=== PATIENT | female | born 1970 | race Caucasian/White ===

== ENCOUNTER → 2016-07-30 | Outpatient (CLI) | payer BC ==
--- NOTE | 2016-07-31 07:57 | MM ---
Reason for exam: screening (asymptomatic). Last mammogram was performed 3 years and 6 months ago. History: Family history of breast cancer in cousin at age 37 and breast cancer in aunt. Taking hormonal contraceptives for 1 year beginning at age 38. Physical Findings: A clinical breast exam by your physician is recommended on an annual basis and results should be correlated with mammographic findings. MG Screening Mammo w CAD Bilateral CC and MLO view(s) were taken. Prior study comparison: February 10, 2013, bilateral digital screening mammo w/CAD. September 30, 2009, bilateral digital screening mammogram. There are scattered fibroglandular densities. No significant changes when compared with prior studies. ASSESSMENT: Negative, BI-RAD 1 RECOMMENDATION: Routine screening mammogram of both breasts in 1 year.
== END | disposition home or self-care (01) ==
LOC: RADMAMWWP 16:16
PROVIDERS: ATTEND Obstetrics & Gynecology
DX: Z12.31 Encounter for screening mammogram for malignant neoplasm of breast (principal); Z80.3 Family history of malignant neoplasm of breast

== ENCOUNTER 2016-11-25 17:48 | Inpatient (IN) | payer BC ==
[2016-11-25] MEDS ORDERED: RX INFO: IV CONTRAST WAS GIVEN 1 EACH MISC MISCELLANE PRN (18:22)
[2016-11-25] MEDS ORDERED: SODIUM CHLORIDE 0.9% 1,000 ML IV STA (18:22)
[2016-11-25] MEDS ORDERED: ONDANSETRON 4 MG/2 ML VIAL IVP STA (18:40)
[2016-11-25] MEDS ORDERED: MORPHINE SULFATE 2 MG/ML SYRINGE IVP ONE (18:40)
[2016-11-25] MEDS ORDERED: ACETAMINOPHEN TAB 500 MG TAB PO STA (18:41)
--- NOTE | 2016-11-25 18:43 | ED ---
Abdominal Pain HPI - General Chief Complaint: Abdominal Pain Stated Complaint: abdominal pain/Fever Time Seen by Provider: 11/25/16 18:15 Source: patient, RN notes reviewed Mode of arrival: ambulatory Limitations: no limitations - History of Present Illness Initial Comments: 46-year-old female presents emergency Department with chief complaint of left lower quadrant abdominal pain, fever not feeling well. Patient states symptoms started today states that she has not taken Tylenol or Motrin. She states that she was at a graduation alliance party when she developed this pain and states that she felt very cold. Patient went and checked her temp found that she had a temp of 101. Patient states that she is a history of diverticulitis with no history of abscesses, surgery. Denies any nausea vomiting diarrhea constipation. Denies any melena or hematochezia. She denies any dysuria or hematuria. - Related Data Home Medications Medication Instructions Recorded Confirmed Lisinopril [Prinivil] 20 mg PO DAILY 02/08/14 11/25/16 Dextroamphetamine/Amphetamine 10 mg PO BID 11/25/16 11/25/16 [Adderall] Allergies Allergy/AdvReac Type Severity Reaction Status Date / Time No Known Allergies Allergy Verified 11/25/16 18:22 Review of Systems ROS Statement: Those systems with pertinent positive or pertinent negative responses have been documented in the HPI. ROS Other: All systems not noted in ROS Statement are negative. Past Medical History Past Medical History: Diabetes Mellitus, Eye Disorder, Hypertension Additional Past Medical History / Comment(s): cataracts left eye History of Any Multi-Drug Resistant Organisms: None Reported Past Surgical History: Section, Tonsillectomy Past Anesthesia/Blood Transfusion Reactions: No Reported Reaction Past Psychological History: No Psychological Hx Reported Smoking Status: Current some day smoker Past Alcohol Use History: Occasional Past Drug Use History: None Reported - Past Family History Mother Family Medical History: Hypertension, Rheumatoid Arthritis (RA) Additional Family Medical History / Comment(s): from aneurysm in neck General Exam Limitations: no limitations General appearance: alert, in no apparent distress Head exam: Present: atraumatic, normocephalic, normal inspection Respiratory exam: Present: normal lung sounds bilaterally. Absent: respiratory distress, wheezes, rales, rhonchi, stridor Cardiovascular Exam: Present: regular rate, normal rhythm, normal heart sounds. Absent: systolic murmur, diastolic murmur, rubs, gallop, clicks GI/Abdominal exam: Present: soft, tenderness (Moderate left lower quadrant tenderness), normal bowel sounds. Absent: distended, guarding, rebound, rigid Back exam: Absent: CVA tenderness (R), CVA tenderness (L) Skin exam: Present: warm, dry, intact, normal color. Absent: rash Course Vital Signs 11/25/16 11/25/16 17:59 19:21 Temperature 101.8 F H 99.7 F H Pulse Rate 98 95 Respiratory 20 18 Rate Blood Pressure 161/87 161/89 O2 Sat by Pulse 97 98 Oximetry Medical Decision Making - Medical Decision Making 46-year-old female presented for abdominal pain. Patient has diverticulitis with no abscess. Patient is in 2000 white count. Patient did present with fever. Patient was given option go home on oral antibiotics that she does not feel comfortable with this time. Patiently admitted to Dr. iDaz's service. - Lab Data Result diagrams: 11/25/16 19:00 11/25/16 19:00 Lab Results 11/25/16 11/25/16 11/25/16 Range/Units 19:00 19:00 19:00 WBC 17.1 H (3.8-10.6) k/uL RBC 4.29 (3.80-5.40) m/uL Hgb 14.0 (11.4-16.0) gm/dL Hct 38.0 (34.0-46.0) % MCV 88.6 (80.0-100.0) fL MCH 32.5 (25.0-35.0) pg MCHC 36.7 (31.0-37.0) g/dL RDW 12.4 (11.5-15.5) % Plt Count 322 (150-450) k/uL Neutrophils % 79 % Lymphocytes % 12 % Monocytes % 5 % Eosinophils % 2 % Basophils % 0 % Neutrophils # 13.5 H (1.3-7.7) k/uL Lymphocytes # 2.1 (1.0-4.8) k/uL Monocytes # 0.9 (0-1.0) k/uL Eosinophils # 0.3 (0-0.7) k/uL Basophils # 0.1 (0-0.2) k/uL PT (9.0-12.0) sec INR (<1.2) APTT (22.0-30.0) sec Sodium 140 (137-145) mmol/L Potassium 3.6 (3.5-5.1) mmol/L Chloride 104 (98-107) mmol/L Carbon Dioxide 22 (22-30) mmol/L Anion Gap 14 mmol/L BUN 14 (7-17) mg/dL Creatinine 0.60 (0.52-1.04) mg/dL Est GFR (MDRD) Af Amer >60 (>60 ml/min/1.73 sqM) Est GFR (MDRD) Non-Af >60 (>60 ml/min/1.73 sqM) Glucose 200 H (74-99) mg/dL Plasma Lactic Acid Jaxon (0.7-2.0) mmol/L Calcium 9.3 (8.4-10.2) mg/dL Total Bilirubin 0.5 (0.2-1.3) mg/dL AST 19 (14-36) U/L ALT 33 (9-52) U/L Alkaline Phosphatase 69 (38-126) U/L Total Protein 6.9 (6.3-8.2) g/dL Albumin 4.1 (3.5-5.0) g/dL Amylase 30 (30-110) U/L Lipase 117 (23-300) U/L Urine Color Urine Appearance (Clear) Urine pH (5.0-8.0) Ur Specific Remlap (1.001-1.035) Urine Protein (Negative) Urine Glucose (UA) (Negative) Urine Ketones (Negative) Urine Blood (Negative) Urine Nitrite (Negative) Urine Bilirubin (Negative) Urine Urobilinogen (<2.0) mg/dL Ur Leukocyte Esterase (Negative) Urine HCG, Qual Not Detected (Not Detectd) 11/25/16 11/25/16 11/25/16 Range/Units 19:00 19:00 19:18 WBC (3.8-10.6) k/uL RBC (3.80-5.40) m/uL Hgb (11.4-16.0) gm/dL Hct (34.0-46.0) % MCV (80.0-100.0) fL MCH (25.0-35.0) pg MCHC (31.0-37.0) g/dL RDW (11.5-15.5) % Plt Count (150-450) k/uL Neutrophils % % Lymphocytes % % Monocytes % % Eosinophils % % Basophils % % Neutrophils # (1.3-7.7) k/uL Lymphocytes # (1.0-4.8) k/uL Monocytes # (0-1.0) k/uL Eosinophils # (0-0.7) k/uL Basophils # (0-0.2) k/uL PT 10.1 (9.0-12.0) sec INR 1.0 (<1.2) APTT 22.0 (22.0-30.0) sec Sodium (137-145) mmol/L Potassium (3.5-5.1) mmol/L Chloride (98-107) mmol/L Carbon Dioxide (22-30) mmol/L Anion Gap mmol/L BUN (7-17) mg/dL Creatinine (0.52-1.04) mg/dL Est GFR (MDRD) Af Amer (>60 ml/min/1.73 sqM) Est GFR (MDRD) Non-Af (>60 ml/min/1.73 sqM) Glucose (74-99) mg/dL Plasma Lactic Acid Jaxon 1.7 (0.7-2.0) mmol/L Calcium (8.4-10.2) mg/dL Total Bilirubin (0.2-1.3) mg/dL AST (14-36) U/L ALT (9-52) U/L Alkaline Phosphatase (38-126) U/L Total Protein (6.3-8.2) g/dL Albumin (3.5-5.0) g/dL Amylase (30-110) U/L Lipase (23-300) U/L Urine Color Yellow Urine Appearance Clear (Clear) Urine pH 6.0 (5.0-8.0) Ur Specific Remlap 1.015 (1.001-1.035) Urine Protein Negative (Negative) Urine Glucose (UA) 4+ H (Negative) Urine Ketones 1+ H (Negative) Urine Blood Negative (Negative) Urine Nitrite Negative (Negative) Urine Bilirubin Negative (Negative) Urine Urobilinogen <2.0 (<2.0) mg/dL Ur Leukocyte Esterase Negative (Negative) Urine HCG, Qual (Not Detectd) Disposition Clinical Impression: Diverticulitis Disposition: ADMITTED IP TO THIS HOSP Condition: Fair Referrals: Barb Young MD [Primary Care Provider] - 1-2 days
[2016-11-25 19:25] LABS: Basophils # (A) 0.1 k/uL (0-0.2); Basophils % (A) 0 %; CH 31.4; CHCM 35.6; Eosinophils # (A) 0.3 k/uL (0-0.7); Eosinophils % (A) 2 %; HDW 2.56; Luc # (Auto) 0.23; Luc % (Auto) 1; Lymphocytes # (A) 2.1 k/uL (1.0-4.8); Lymphocytes % (A) 12 %; MCH 32.5 pg (25.0-35.0); MCHC 36.7 g/dL (31.0-37.0); MCV 88.6 fL (80.0-100.0); Mean Platelet Volume 7.5; Monocytes # (A) 0.9 k/uL (0-1.0); Monocytes % (A) 5 %; Neutrophils # (A) 13.5 k/uL (1.3-7.7); Neutrophils % (A) 79 %; RBC 4.29 m/uL (3.80-5.40); RDW 12.4 % (11.5-15.5); WBC 17.1 k/uL (3.8-10.6); WBC (Perox) 17.44
[2016-11-25 19:38] LABS: ALT 33 U/L (9-52); AST 19 U/L (14-36); Alkaline Phosphatase 69 U/L (38-126); Amylase 30 U/L (30-110); Anion Gap 14 mmol/L; Blood Urea Nitrogen 14 mg/dL (7-17); Calcium 9.3 mg/dL (8.4-10.2); Carbon Dioxide 22 mmol/L (22-30); Chloride 104 mmol/L (98-107); Glucose 200 mg/dL (74-99); Non-African American GFR(MDRD) >60 (>60 ml/min/1.73 sqM); Potassium 3.6 mmol/L (3.5-5.1); Sodium 140 mmol/L (137-145); Total Bilirubin 0.5 mg/dL (0.2-1.3); Total Protein 6.9 g/dL (6.3-8.2)
[2016-11-25 19:49] LABS: Appearance,Urine Clear (Clear); Bilirubin,Urine Negative (Negative); Glucose,Urine (UA) 4+ (Negative); Ketones,Urine 1+ (Negative); Leukocyte Esterase,Urine Negative (Negative); Nitrite,Urine Negative (Negative); Protein,Urine Negative (Negative); Specific Gravity,Urine 1.015 (1.001-1.035); UA Billing (MACRO vs. MICRO) CHEM; Urobilinogen,Urine <2.0 mg/dL (<2.0)
[2016-11-25 20:06] LABS: Prothrombin Time 10.1 sec (9.0-12.0)
--- NOTE | 2016-11-25 20:38 | CT ---
EXAMINATION TYPE: CT abdomen pelvis w con DATE OF EXAM: 11/25/2016 COMPARISON: 07/19/2014 HISTORY: LLQ pain x1 day. CT DLP: 1483.7 mGycm Automated exposure control for dose reduction was used. TECHNIQUE: Helical acquisition of images was performed from the lung bases through the pelvis. CONTRAST: Performed without Oral Contrast and with IV Contrast, patient injected with 100 mL of Omnipaque 300. FINDINGS: Lung bases are clear. There is no pleural effusion. Liver spleen pancreas gallbladder appear normal. Bile ducts are not dilated. There is no adrenal mass. Kidneys show satisfactory contrast opacificatio n. There is no hydronephrosis. There is fluid fat stranding involving the descending colon and proximal sigmoid colon. There are sig moid diverticula. Bladder distends smoothly. There is no pelvic mass. There is no ascites. Appendix a ppears normal. There is no retroperitoneal adenopathy. The bony structures are intact. IMPRESSION: THERE IS MODERATE INFLAMMATORY CHANGE INVOLVING THE LOWER DESCENDING COLON AND PROXIMAL SIGMOID COLON CONSISTENT WITH DIVERTICULITIS THAT IS NEW COMPARED TO OLD EXAM. NO DRAINABLE ABSCESS SEEN. THERE IS CLEARING OF THE LEFT OVARIAN CYST COMPARED TO OLD EXAM.
[2016-11-25] MEDS ORDERED: NALOXONE 0.4 MG/ML 1 ML VIAL IV PRN (20:55)
[2016-11-25] MEDS ORDERED: ONDANSETRON 4 MG/2 ML VIAL IVP PRN (20:55)
[2016-11-25] MEDS ORDERED: MORPHINE SULFATE 4 MG/ML SYRINGE IV PRN (20:55)
[2016-11-25] MEDS ORDERED: ACETAMINOPHEN TAB 325 MG TAB PO PRN (20:55)
[2016-11-25] MEDS ORDERED: LEVOFLOXACIN 750MG-D5W PMX 750 MG in DEXTROSE/WATER 1 150ML.BAG IVPB STA (20:57)
[2016-11-25] MEDS ORDERED: metroNIDAZOLE-NS PMX 500 MG in SALINE 1 100ML.BAG IVPB STA (21:03)
[2016-11-25] MEDS: SODIUM CHLORIDE 0.9% 1,000 ML IV SCH (21:20)
[2016-11-25 21:45] VITALS: BMI 35.6
[2016-11-25 22:09] LABS: Glucose,Whole Blood 141 mg/dL (75-99)
[2016-11-25 22:14] VITALS: RESP 16
[2016-11-25] MEDS: INSULIN LISPRO (humaLOG) 300 UNIT/3 ML VIAL SQ SCH (22:32)
[2016-11-26] MEDS: HYDROmorphone 1 MG/ML 1 ML SYRINGE IM PRN ×4 (00:29→12:20)
[2016-11-26] MEDS: SODIUM CHLORIDE 0.9% 1,000 ML IV SCH (06:11)
[2016-11-26 06:50] LABS: Glucose,Whole Blood 143 mg/dL (75-99)
[2016-11-26] MEDS: INSULIN LISPRO (humaLOG) 300 UNIT/3 ML VIAL SQ SCH ×2 (07:34→12:30)
[2016-11-26] MEDS: metroNIDAZOLE-NS PMX 500 MG in SALINE 1 100ML.BAG IVPB SCH ×2 (07:39→16:01)
[2016-11-26 08:06] LABS: Hemoglobin A1C 6.5 % (4.2-6.1)
[2016-11-26] MEDS ORDERED: LISINOPRIL 20 MG TAB PO SCH (09:00)
[2016-11-26] MEDS ORDERED: PANTOPRAZOLE 40 MG/10 ML VIAL IV SCH (09:00)
[2016-11-26 11:43] LABS: Glucose,Whole Blood 173 mg/dL (75-99)
[2016-11-26 15:38] VITALS: BP 107/68; PULSE 72; TEMP 98
[2016-11-26] MEDS ORDERED: HYDROcodone/APAP 5-325MG 1 EACH TAB PO PRN (15:56)
[2016-11-26 17:04] LABS: Glucose,Whole Blood 146 mg/dL (75-99)
--- NOTE | 2016-11-26 17:50 | P.HPIM ---
History of Present Illness H&P Date: 11/26/16 Chief Complaint: Left lower abdominal quadrant pain Mrs. Chavez is a 46-year-old female with a past medical history of upper tension, prediabetes coming into the hospital with a chief complaint of left lower abdominal quadrant pain for the past 1 day. Patient was also complaining of fever. The abdominal pain is mostly on the left lower quadrant, radiates 8 out of 10, no radiation, not associated with diarrhea or constipation. Patient denies having any nausea or vomiting. No sick contacts. Patient states he has history of diverticulitis in the past but did not have any surgery done. Patient denies having any dysuria or hematuria. Patient denies having any blood in her stool. She denies having any chest pain, difficulty in breathing, palpitations. Patient had a CAT scan of the abdomen and pelvis showing proximal sigmoid colon diverticulitis. She also did have a white count of 17.2. Patient was given IV Flagyl and Levaquin and given Dilaudid for pain. Patient's symptoms did resolve. Patient did tolerate her dinner this evening and request that she goes home today as she does not have fever, and that her abdominal pain has improved. Review of Systems REVIEW OF SYSTEMS: PSYCH: Normal psychiatric exam NEURO:No c/o weakness of the extremties, No facial droop, No speech abnormalities. VASCULAR: Peripheral nervous system within the normal limits no edema HEMATOLOGIC: No history of easy bleeding and bruising . No recent infections . RESPIRATORY: No cough, No SOB, No chest discomfort. IMMUNE: No infections INTEGUMENT: no rashes OPHTHALMOLOGIC: No blurry vision and no eye discharge : No dysuria or hematuria VIDEO PRODUCTION INTERN: No bleeding PV CARDIAC: No chest pain , shortness of breath , paroxysmal nocturnal dyspnea MUSCULOSKELETAL : No Aches or pains in the joints or muscles. GI: No abdominal pain, Nausea or vomiting. No constipation or diarrhea. Past Medical History Past Medical History: Diabetes Mellitus, Eye Disorder, Hypertension Additional Past Medical History / Comment(s): cataracts left eye History of Any Multi-Drug Resistant Organisms: None Reported Past Surgical History: Section, Tonsillectomy Past Anesthesia/Blood Transfusion Reactions: No Reported Reaction Past Psychological History: No Psychological Hx Reported Smoking Status: Current some day smoker Past Alcohol Use History: Occasional Past Drug Use History: None Reported - Past Family History Mother Family Medical History: Hypertension, Rheumatoid Arthritis (RA) Additional Family Medical History / Comment(s): from aneurysm in neck Medications and Allergies Home Medications Medication Instructions Recorded Confirmed Type Lisinopril [Prinivil] 20 mg PO DAILY 02/08/14 11/25/16 History Dextroamphetamine/Amphetamine 10 mg PO BID 11/25/16 11/25/16 History [Adderall] Allergies Allergy/AdvReac Type Severity Reaction Status Date / Time No Known Allergies Allergy Verified 11/25/16 18:22 Physical Exam Vitals: Vital Signs Temp Pulse Pulse Resp BP BP Pulse Ox 11/26/16 15:00 98.0 F 72 16 107/68 97 11/26/16 07:00 98.6 F 78 16 118/82 98 11/26/16 02:06 98.9 F 76 16 105/68 96 11/25/16 22:12 97.5 F L 88 16 138/85 98 11/25/16 21:15 100.5 F H 91 18 139/83 96 11/25/16 19:21 99.7 F H 95 18 161/89 98 11/25/16 17:59 101.8 F H 98 20 161/87 97 Intake and Output 11/26/16 11/26/16 11/26/16 06:59 14:59 22:59 Intake Total 800 1500 600 Balance 800 1500 600 Intake: Intake, IV Titration 800 800 Amount Levofloxacin 750Mg-D5w 100 Pmx 750 mg In Dextrose/ Water 1 150ml.bag @ 100 mls/hr IVPB Q24H NATHANIEL Rx#: [id number] Sodium Chloride 0.9% 1, 600 000 ml @ 75 mls/hr IV . [id number] NATHANIEL Rx#:[id number] metroNIDAZOLE-NS PMX 500 100 800 mg In Saline 1 100ml.bag @ 100 mls/hr IVPB Q8HR NATHANIEL Rx#:[id number] Oral 700 600 GENERAL EXAM GEN. APPEARANCE: alert, in no apparent distress HEAD EXAM: atraumatic, normocephalic, normal inspection EYE EXAM: normal appearance, PERRL, EOMI. Absent: scleral icterus, conjunctival injection, periorbital swelling ENT EXAM: normal exam, mucous membranes moist NECK EXAM: normal inspection. Absent: tenderness, meningismus, full ROM, lymphadenopathy RESPIRATORY EXAM: normal lung sounds bilaterally. Absent: respiratory distress , wheezes, rales, rhonchi, stridor CARDIOVASCULAR EXAM: regular rate, normal rhythm, normal heart sounds. Absent : systolic murmur, diastolic murmur, rubs, gallop, clicks GI/ABDOMINAL EXAM: soft, normal bowel sounds. + tenderness in the left lower quadrant . EXTREMITIES EXAM: normal inspection, full ROM, normal capillary refill. Absent : tenderness, pedal edema, joint swelling, calf tenderness BACK EXAM: normal inspection NEUROLOGICAL EXAM: alert, oriented X3, CN II-XII intact, motor sensory deficit PSYCHIATRIC EXAM: normal affect, normal mood SKIN EXAM: warm, dry, intact, normal color. Absent: rash Results CBC & Chem 7: 11/25/16 19:00 11/25/16 19:00 Labs: Abnormal Lab Results - Last 24 Hours (Table) 11/25/16 11/25/16 11/25/16 Range/Units 19:00 19:00 19:00 WBC 17.1 H (3.8-10.6) k/uL Neutrophils # 13.5 H (1.3-7.7) k/uL Glucose 200 H (74-99) mg/dL POC Glucose (mg/dL) (75-99) mg/dL Hemoglobin A1c 6.5 H (4.2-6.1) % Urine Glucose (UA) (Negative) Urine Ketones (Negative) 11/25/16 11/25/16 11/26/16 Range/Units 19:18 22:08 06:40 WBC (3.8-10.6) k/uL Neutrophils # (1.3-7.7) k/uL Glucose (74-99) mg/dL POC Glucose (mg/dL) 141 H 143 H (75-99) mg/dL Hemoglobin A1c (4.2-6.1) % Urine Glucose (UA) 4+ H (Negative) Urine Ketones 1+ H (Negative) 11/26/16 11/26/16 Range/Units 11:21 16:44 WBC (3.8-10.6) k/uL Neutrophils # (1.3-7.7) k/uL Glucose (74-99) mg/dL POC Glucose (mg/dL) 173 H 146 H (75-99) mg/dL Hemoglobin A1c (4.2-6.1) % Urine Glucose (UA) (Negative) Urine Ketones (Negative) CT scan - abdomen: report reviewed (Sigmoid colon diverticulitis) Thrombosis Risk Factor Assmnt - Choose All That Apply Any of the Below Risk Factors Present?: No Assessment and Plan Plan: ASSESSMENT Acute diverticulitis Essential hypertension Prediabetes History of diverticulitis ADHD PLAN Patient was started on IV Flagyl and Levaquin and IV fluids after which her symptoms improved significantly. Patient is able to tolerate by mouth, she had a sandwich for dinner and she wants to go home. She is being discharged today on Flagyl and ciprofloxacin for a total of 10 days. She is advised to follow up with her PCP in 2-3 days.
--- NOTE | 2016-11-26 17:51 | P.DS ---
Providers Date of admission: 11/25/16 20:55 Attending physician: Vernon Diaz Primary care physician: Hannah Stoddard [facility] Course: Mrs. Chavez is a 46-year-old female with a past medical history of upper tension, prediabetes coming into the hospital with a chief complaint of left lower abdominal quadrant pain for the past 1 day. Patient was also complaining of fever. The abdominal pain is mostly on the left lower quadrant, radiates 8 out of 10, no radiation, not associated with diarrhea or constipation. Patient denies having any nausea or vomiting. No sick contacts. Patient states he has history of diverticulitis in the past but did not have any surgery done. Patient denies having any dysuria or hematuria. Patient denies having any blood in her stool. She denies having any chest pain, difficulty in breathing, palpitations. Patient had a CAT scan of the abdomen and pelvis showing proximal sigmoid colon diverticulitis. She also did have a white count of 17.2. Patient was given IV Flagyl and Levaquin and given Dilaudid for pain. Patient's symptoms did resolve. Patient did tolerate her dinner this evening and request that she goes home today as she does not have fever, and that her abdominal pain has improved. Patient is able to tolerate by mouth, she had a sandwich for dinner and she wants to go home. She is being discharged today on Flagyl and ciprofloxacin for a total of 10 days. She is advised to follow up with her PCP in 2-3 days. DISCHARGE DIAGNOSES: Acute diverticulitis Essential hypertension Prediabetes History of diverticulitis ADHD Patient Condition at Discharge: Fair Plan - Discharge Summary New Discharge Prescriptions: New Ciprofloxacin HCl [Cipro] 500 mg PO Q12HR #20 tablet HYDROcodone/APAP 5-325MG [Corona 5-325] 1 each PO Q6HR PRN #30 tab PRN Reason: Pain metroNIDAZOLE [Flagyl] 500 mg PO TID #30 tab Continue Lisinopril [Prinivil] 20 mg PO DAILY Dextroamphetamine/Amphetamine [Adderall] 10 mg PO BID Discharge Medication List Lisinopril [Prinivil] 20 mg PO DAILY 02/08/14 [History] Dextroamphetamine/Amphetamine [Adderall] 10 mg PO BID 11/25/16 [History] Ciprofloxacin HCl [Cipro] 500 mg PO Q12HR #20 tablet 11/26/16 [Rx] HYDROcodone/APAP 5-325MG [Corona 5-325] 1 each PO Q6HR PRN #30 tab 11/26/16 [Rx] metroNIDAZOLE [Flagyl] 500 mg PO TID #30 tab 11/26/16 [Rx] Follow up Appointment(s)/Referral(s): Barb Young MD [Primary Care Provider] - 1-2 days (Please call to make follow up appointment. ) Patient Instructions/Handouts: Diverticulitis (DC), Diverticulitis Diet (DC) Discharge Disposition: HOME SELF-CARE
[2016-11-26] MEDS ORDERED: LEVOFLOXACIN 750MG-D5W PMX 750 MG in DEXTROSE/WATER 1 150ML.BAG IVPB SCH (21:00)
[2016-11-27] MEDS ORDERED: ESOMEPRAZOLE 20 MG in SODIUM CHLORIDE 0.9% 50 ML IVPB SCH (09:00)
== END 2016-11-26 18:15 | disposition home or self-care (01) | DRG 392 ==
LOC: EC 17:48 → 3SUR 20:55
PROVIDERS: ADMIT Hospitalist; ATTEND Hospitalist
DX: K57.32 Diverticulitis of large intestine without perforation or abscess without bleeding (principal); I10 Essential (primary) hypertension; F90.9 Attention-deficit hyperactivity disorder, unspecified type; F17.200 Nicotine dependence, unspecified, uncomplicated; E11.9 Type 2 diabetes mellitus without complications; H26.9 Unspecified cataract; Z79.899 Other long term (current) drug therapy
CPT/HCPCS: 36415; 74177; 80053; 81003; 81025; 82150; 83036; 83605; 83690; 85025; 85610; 85730; 87040; 96361; 96374; 96375; 96376; 99285

== ENCOUNTER 2017-10-01 06:15 | Emergency (ER) | payer BC ==
[2017-10-01 06:21] VITALS: RESP 16
[2017-10-01] MEDS ORDERED: SODIUM CHLORIDE 0.9% 1,000 ML IV STA (07:32)
[2017-10-01 07:46] LABS: Basophils # (A) 0.1 k/uL (0-0.2); Basophils % (A) 1 %; Eosinophils # (A) 0.6 k/uL (0-0.7); Eosinophils % (A) 6 %; HCT 43.2 % (34.0-46.0); HGB 14.9 gm/dL (11.4-16.0); Lymphocytes % (A) 32 %; MCH 30.6 pg (25.0-35.0); MCHC 34.5 g/dL (31.0-37.0); MCV 88.7 fL (80.0-100.0); Mean Platelet Volume 7.8; Monocytes # (A) 0.6 k/uL (0-1.0); Monocytes % (A) 6 %; Neutrophils % (A) 54 %; Platelet Count 365 k/uL (150-450); RBC 4.87 m/uL (3.80-5.40); WBC 9.4 k/uL (3.8-10.6)
[2017-10-01 07:56] LABS: Partial Thromboplastin Time 22.9 sec (22.0-30.0)
[2017-10-01 07:57] LABS: ALT 37 U/L (9-52); AST 26 U/L (14-36); Albumin 4.4 g/dL (3.5-5.0); Alkaline Phosphatase 77 U/L (38-126); Anion Gap 14 mmol/L; Blood Urea Nitrogen 7 mg/dL (7-17); Calcium 9.9 mg/dL (8.4-10.2); Carbon Dioxide 26 mmol/L (22-30); Chloride 102 mmol/L (98-107); Glucose 139 mg/dL (74-99); Magnesium 1.4 mg/dL (1.6-2.3); Potassium 3.8 mmol/L (3.5-5.1); Sodium 142 mmol/L (137-145); Total Bilirubin 0.8 mg/dL (0.2-1.3); Total Protein 7.6 g/dL (6.3-8.2)
[2017-10-01 08:08] LABS: Creatine Kinase 79 U/L (30-135)
[2017-10-01 08:21] LABS: Troponin I <0.012 ng/mL (0.000-0.034)
--- NOTE | 2017-10-01 08:24 | XR ---
EXAMINATION TYPE: XR chest 2V DATE OF EXAM: 10/01/2017 COMPARISON: 07/19/2014 HISTORY: 46-year-old female with dysrhythmia TECHNIQUE: PA and lateral views FINDINGS: The cardiomediastinal silhouette, aorta, and pulmonary vasculature are within normal limits. Strandy atelectasis in the lower lungs. Otherwise, lungs and pleural spaces are clear. IMPRESSION: No acute cardiopulmonary process.
--- NOTE | 2017-10-01 10:04 | ED ---
Arrhythmia/Palpitations HPI - General Chief Complaint: Arrhythmia/Palpitations Stated Complaint: rapid heart rate Time Seen by Provider: 10/01/17 07:05 Source: patient Mode of arrival: ambulatory Limitations: no limitations - History of Present Illness Initial Comments: 36 years old female presents with palpitation since yesterday afternoon 3 PM she does have a history of hypertension she does take DIMPLE inhibitor's for the period she said she was quite stressed out because of some family affairs and now she had 5-7 drinks yesterday. She denies any daily alcohol use she does drink once a week she denies any history of thyroid disease. Denies any headaches no neck stiffness no chest pain no shortness of breath no abdominal pain no frequency urgency dysuria no symptoms of TIA or CVA - Related Data Home Medications Medication Instructions Recorded Confirmed Lisinopril [Prinivil] 20 mg PO DAILY 02/08/14 10/01/17 Allergies Allergy/AdvReac Type Severity Reaction Status Date / Time No Known Allergies Allergy Verified 10/01/17 07:58 Review of Systems ROS Statement: Those systems with pertinent positive or pertinent negative responses have been documented in the HPI. ROS Other: All systems not noted in ROS Statement are negative. Past Medical History Past Medical History: Diabetes Mellitus, Eye Disorder, Hypertension Additional Past Medical History / Comment(s): cataracts left eye History of Any Multi-Drug Resistant Organisms: None Reported Past Surgical History: Section, Tonsillectomy Past Anesthesia/Blood Transfusion Reactions: No Reported Reaction Past Psychological History: No Psychological Hx Reported Smoking Status: Current some day smoker Past Alcohol Use History: Occasional Past Drug Use History: None Reported - Past Family History Mother Family Medical History: Hypertension, Rheumatoid Arthritis (RA) Additional Family Medical History / Comment(s): from aneurysm in neck General Exam - General Exam Comments Initial Comments: General: The patient is awake and alert, in no distress, and does not appear acutely ill. Skin: Skin is warm and dry and no rashes or lesions are noted. Eye: Pupils are equal, round and reactive to light, extra-ocular movements are intact; there is normal conjunctiva bilaterally. Ears, nose, mouth and throat: There are moist mucous membranes and no oral lesions. Neck: The neck is supple, there is no tenderness or JVD. Cardiovascular: There is a regular rate and rhythm. No murmur, rub or gallop is appreciated. Respiratory: To auscultation bilateral, no wheezing no rhonchi no distress respiratory mas noticed Gastrointestinal: Soft, non-distended, non-tender abdomen without masses or organomegaly noted. There is no rebound or guarding present. Bowel sounds are unremarkable. Back: There is no tenderness to palpation in the midline. There is no obvious deformity. Musculoskeletal: Normal ROM, no tenderness, There is no pedal edema. There is no calf tenderness or swelling. No cords were appreciated. Neurological: CN II-XII intact, Cranial nerves III through XII are intact. There are no obvious motor or sensory deficits. Coordination appears grossly intact. Speech is normal. Psychiatric: Cooperative, appropriate mood & affect, normal judgment. Limitations: no limitations Course Vital Signs 10/01/17 10/01/17 10/01/17 06:18 07:42 09:10 Temperature 97.9 F Pulse Rate 70 66 71 Respiratory 16 16 16 Rate Blood Pressure 176/98 140/79 137/77 O2 Sat by Pulse 98 98 96 Oximetry Patient is reassessed, CBC, INR, troponin, chest x-ray are unremarkable. TSH is 5.6 is slightly higher than the normal range. All these labs and imaging findings were discussed with the patient, I recommended that she follow with the cardiology associates she agreed with that also advised that she refrains from a cough for the next 3 days she agreed with that as well and return to the ER if symptoms get worse EKG Findings - EKG Comments: EKG Findings:: ALLERGIES normal sinus rhythm ventricular rate is 65 [place] interval is 136 QRS duration is 1 or 2 QT/QTc is 452/470 review cc EKG does not reveal any ST elevation or ST depression Medical Decision Making - Lab Data Result diagrams: 10/01/17 06:30 10/01/17 06:30 Lab Results 10/01/17 10/01/17 10/01/17 Range/Units 06:30 06:30 06:30 WBC 9.4 (3.8-10.6) k/uL RBC 4.87 (3.80-5.40) m/uL Hgb 14.9 (11.4-16.0) gm/dL Hct 43.2 (34.0-46.0) % MCV 88.7 (80.0-100.0) fL MCH 30.6 (25.0-35.0) pg MCHC 34.5 (31.0-37.0) g/dL RDW 13.0 (11.5-15.5) % Plt Count 365 (150-450) k/uL Neutrophils % 54 % Lymphocytes % 32 % Monocytes % 6 % Eosinophils % 6 % Basophils % 1 % Neutrophils # 5.0 (1.3-7.7) k/uL Lymphocytes # 3.0 (1.0-4.8) k/uL Monocytes # 0.6 (0-1.0) k/uL Eosinophils # 0.6 (0-0.7) k/uL Basophils # 0.1 (0-0.2) k/uL PT (9.0-12.0) sec INR (<1.2) APTT (22.0-30.0) sec Sodium 142 (137-145) mmol/L Potassium 3.8 (3.5-5.1) mmol/L Chloride 102 (98-107) mmol/L Carbon Dioxide 26 (22-30) mmol/L Anion Gap 14 mmol/L BUN 7 (7-17) mg/dL Creatinine 0.54 (0.52-1.04) mg/dL Est GFR (CKD-EPI)AfAm >90 (>60 ml/min/1.73 sqM) Est GFR (CKD-EPI)NonAf >90 (>60 ml/min/1.73 sqM) Glucose 139 H (74-99) mg/dL Calcium 9.9 (8.4-10.2) mg/dL Magnesium 1.4 L (1.6-2.3) mg/dL Total Bilirubin 0.8 (0.2-1.3) mg/dL AST 26 (14-36) U/L ALT 37 (9-52) U/L Alkaline Phosphatase 77 (38-126) U/L Total Creatine Kinase 79 (30-135) U/L CK-MB (CK-2) 1.0 (0.0-2.4) ng/mL CK-MB (CK-2) Rel Index 1.3 Troponin I <0.012 (0.000-0.034) ng/mL Total Protein 7.6 (6.3-8.2) g/dL Albumin 4.4 (3.5-5.0) g/dL TSH 5.610 H (0.465-4.680) mIU/L 10/01/17 Range/Units 06:30 WBC (3.8-10.6) k/uL RBC (3.80-5.40) m/uL Hgb (11.4-16.0) gm/dL Hct (34.0-46.0) % MCV (80.0-100.0) fL MCH (25.0-35.0) pg MCHC (31.0-37.0) g/dL RDW (11.5-15.5) % Plt Count (150-450) k/uL Neutrophils % % Lymphocytes % % Monocytes % % Eosinophils % % Basophils % % Neutrophils # (1.3-7.7) k/uL Lymphocytes # (1.0-4.8) k/uL Monocytes # (0-1.0) k/uL Eosinophils # (0-0.7) k/uL Basophils # (0-0.2) k/uL PT 10.0 (9.0-12.0) sec INR 1.0 (<1.2) APTT 22.9 (22.0-30.0) sec Sodium (137-145) mmol/L Potassium (3.5-5.1) mmol/L Chloride (98-107) mmol/L Carbon Dioxide (22-30) mmol/L Anion Gap mmol/L BUN (7-17) mg/dL Creatinine (0.52-1.04) mg/dL Est GFR (CKD-EPI)AfAm (>60 ml/min/1.73 sqM) Est GFR (CKD-EPI)NonAf (>60 ml/min/1.73 sqM) Glucose (74-99) mg/dL Calcium (8.4-10.2) mg/dL Magnesium (1.6-2.3) mg/dL Total Bilirubin (0.2-1.3) mg/dL AST (14-36) U/L ALT (9-52) U/L Alkaline Phosphatase (38-126) U/L Total Creatine Kinase (30-135) U/L CK-MB (CK-2) (0.0-2.4) ng/mL CK-MB (CK-2) Rel Index Troponin I (0.000-0.034) ng/mL Total Protein (6.3-8.2) g/dL Albumin (3.5-5.0) g/dL TSH (0.465-4.680) mIU/L Disposition Clinical Impression: Palpitation Disposition: HOME SELF-CARE Condition: Good Instructions: Palpitations (ED) Is patient prescribed a controlled substance at d/c from ED?: No If prescribed controlled substance>3 days was MAPS reviewed?: No When asked, does pt state using other controlled substances?: No Referrals: Barb Young MD [Primary Care Provider] - 1-2 days Vinod Zarco MD [STAFF PHYSICIAN] - 1-2 days
[2017-10-01 10:16] VITALS: BP 134/78; PULSE 73; TEMP 98
== END 2017-10-01 10:13 | disposition home or self-care (01) ==
LOC: EC 06:15
DX: R00.2 Palpitations (principal); I10 Essential (primary) hypertension; F17.200 Nicotine dependence, unspecified, uncomplicated; Z79.899 Other long term (current) drug therapy
CPT/HCPCS: 36415; 71046; 80053; 82550; 82553; 83735; 84443; 84484; 85025; 85610; 85730; 93005; 96360; 99285

== ENCOUNTER → 2018-06-25 | Outpatient (CLI) | payer SELFPAY ==
[2018-06-25 16:16] LABS: HCT 41.6 % (34.0-46.0); HGB 14.2 gm/dL (11.4-16.0); MCH 30.9 pg (25.0-35.0); MCHC 34.1 g/dL (31.0-37.0); MCV 90.6 fL (80.0-100.0); Mean Platelet Volume 8.1; Platelet Count 311 k/uL (150-450); RBC 4.59 m/uL (3.80-5.40); RDW 12.5 % (11.5-15.5); WBC 8.7 k/uL (3.8-10.6)
[2018-06-25 16:25] LABS: Anion Gap 11 mmol/L; Blood Urea Nitrogen 18 mg/dL (7-17); Carbon Dioxide 25 mmol/L (22-30); Chloride 101 mmol/L (98-107); Glucose 331 mg/dL (74-99); Potassium 4.3 mmol/L (3.5-5.1); Sodium 137 mmol/L (137-145)
== END ==
LOC: LABPAT 15:01
PROVIDERS: ATTEND Internal Medicine Cardiovascular Disease
DX: Z01.812 Encounter for preprocedural laboratory examination (principal); I47.2 Ventricular tachycardia
CPT/HCPCS: 36415; 80051; 82565; 82947; 84520; 85027

== ENCOUNTER 2018-07-04 06:10 | Day surgery (SDC) | payer BC, OTHER ==
[2018-07-02 09:26] VITALS: BMI 35.5
[2018-07-04] MEDS ORDERED: NITROGLYCERIN SL TABS 0.4 MG TAB SUBLINGUAL PRN (06:33)
[2018-07-04] MEDS ORDERED: ALPRAZolam 0.25 MG TAB PO PRN (06:33)
[2018-07-04] MEDS ORDERED: ALPRAZolam 0.5 MG TAB PO PRN (06:33)
[2018-07-04] MEDS ORDERED: SODIUM CHLORIDE 0.9% 1,000 ML in EMPTY BAG 1 BAG IV ONE (06:33)
[2018-07-04 06:51] VITALS: RESP 16; TEMP 98.2
[2018-07-04] MEDS ORDERED: SODIUM CHLORIDE 0.9% 1,000 ML IV ONE (06:54)
[2018-07-04] MEDS ORDERED: ASPIRIN 325 MG TAB PO ONE (07:00)
[2018-07-04] MEDS ORDERED: ATORVASTATIN 80 MG TAB PO ONE (07:00)
[2018-07-04] MEDS ORDERED: INSULIN ASPART (NovoLOG) 100 UNIT/ML VIAL SQ ONE ×2 (07:03→09:47)
[2018-07-04] MEDS ORDERED: LIDOCAINE 1% INJ 10MG/ML (20 ML MDV) ONE (07:21)
[2018-07-04] MEDS ORDERED: fentaNYL (PF) 50 MCG/ML 2 ML AMP ONE (07:23)
[2018-07-04] MEDS ORDERED: fentaNYL (PF) 50 MCG/ML 2 ML AMP IV ONE (07:33)
[2018-07-04] MEDS ORDERED: MIDAZOLAM 2 MG/2 ML VIAL IV ONE (07:33)
[2018-07-04] MEDS ORDERED: LIDOCAINE 1% INJ 10MG/ML (10 ML MDV) SQ ONE (07:35)
[2018-07-04] MEDS ORDERED: IOPAMIDOL-370 125ML BTL INJ ONE (07:54)
[2018-07-04] MEDS ORDERED: RX INFO: IV CONTRAST WAS GIVEN 1 EACH MISC MISCELLANE PRN (07:56)
[2018-07-04] MEDS ORDERED: SODIUM CHLORIDE 0.9% 1,000 ML IV SCH (08:00)
--- NOTE | 2018-07-04 08:24 | CC ---
CARDIAC CATHETERIZATION REPORT INDICATION: Ventricular tachycardia. A 47-year-old lady who follows with my associate, Dr. Fragoso, had right ventricular outflow tract VT and he advised her to undergo cardiac catheterization and asked me to perform the cardiac catheterization for him. Patient was explained the risks, benefits and alternatives. Prior to the catheterization, we found that her blood sugars are elevated and she was given insulin and I asked her to follow up with her primary care physician to be started on antidiabetic medication. PROCEDURE NOTE: After obtaining informed consent, left heart catheterization and coronary angiogram are performed via the right femoral artery using standard Etta catheters. The patient tolerated the procedure well without any obvious immediate complications. A femoral angiogram was performed and Angio-Seal was deployed for hemostasis. Patient received moderate conscious sedation. Total sedation time was 15 minutes. FINDINGS: 1. HEMODYNAMICS: Left ventricular end-diastolic pressure is 12 to 14 mm. There is no significant gradient across the aortic valve. 2. LEFT VENTRICULOGRAM: Left angiogram is not performed. 3. ANGIOGRAPHIC DATA: Left main coronary artery is a short vessel that divides into LAD and circumflex coronary artery. The LAD and its branches, circumflex coronary artery and its branches are free of significant stenosis. Right coronary artery is a large dominant vessel and is free of significant stenosis. CONCLUSIONS: 1. Normal left ventricular end-diastolic pressure. 2. Normal coronary arteries. PLAN: Patient's management is going to be in the form of risk factor modification. I advised her to follow up with Dr. Fragoso in the office for further management and plans. Her blood sugars, she will follow up with her primary care physician in the next few days. The patient knows that she is a diabetic and has been trying to do diet. MMODL / IJN: [id number] /
[2018-07-04] MEDS ORDERED: ACETAMINOPHEN TAB 325 MG TAB PO PRN (10:08)
[2018-07-04 11:52] LABS: Glucose,Whole Blood 322 mg/dL (75-99)
[2018-07-04 11:52] LABS: Glucose,Whole Blood 361 mg/dL (75-99)
[2018-07-04 12:35] VITALS: BP 126/81; PULSE 67
== END 2018-07-04 13:13 | disposition home or self-care (01) ==
LOC: CATHCVL 06:10
PROVIDERS: ATTEND Internal Medicine Cardiovascular Disease
DX: I47.2 Ventricular tachycardia (principal); I10 Essential (primary) hypertension; G47.33 Obstructive sleep apnea (adult) (pediatric); Z72.0 Tobacco use
CPT/HCPCS: 93458; 81025; C1760; C1894; C1769; J2250; J3010; J2001; Q9967

== ENCOUNTER → 2018-08-07 | Outpatient (CLI) | payer OTHER ==
[2018-08-07 16:22] LABS: HCT 38.5 % (34.0-46.0); HGB 12.7 gm/dL (11.4-16.0); MCH 30.2 pg (25.0-35.0); MCV 91.4 fL (80.0-100.0); Platelet Count 275 k/uL (150-450); RBC 4.21 m/uL (3.80-5.40); RDW 13.1 % (11.5-15.5); WBC 9.4 k/uL (3.8-10.6)
[2018-08-07 17:02] LABS: Anion Gap 9 mmol/L; Blood Urea Nitrogen 27 mg/dL (7-17); Carbon Dioxide 27 mmol/L (22-30); Chloride 99 mmol/L (98-107); Glucose 139 mg/dL (74-99); Magnesium 1.6 mg/dL (1.6-2.3); Potassium 4.4 mmol/L (3.5-5.1); Sodium 135 mmol/L (137-145)
== END | disposition home or self-care (01) ==
LOC: LABPAT 16:07
PROVIDERS: ATTEND Internal Medicine Clinical Cardiac Electrophysiology
DX: Z01.812 Encounter for preprocedural laboratory examination (principal); I47.2 Ventricular tachycardia
CPT/HCPCS: 36415; 80051; 82565; 82947; 83735; 84520; 85027

== ENCOUNTER 2018-08-11 11:02 | Day surgery (SDC) | payer OTHER ==
[~2018-08-11 11:02] MED LIST: HYDROmorphone 0.5 MG/0.5 ML SYRINGE IVP PRN; MIDAZOLAM (PF) 2 MG/2 ML VIAL IV PRN
[2018-08-11] MEDS ORDERED: SODIUM CHLORIDE 0.9% 1,000 ML IV ONE (11:25)
[2018-08-11] MEDS ORDERED: PROPOFOL 10 MG/ML 20 ML VIAL IV ONE (11:46)
[2018-08-11] MEDS ORDERED: fentaNYL (PF) 50 MCG/ML 2 ML AMP ONE (11:46)
[2018-08-11] MEDS ORDERED: ISOPROTERENOL 250 MCG/1.25 ML SYR IV ONE (11:46)
[2018-08-11] MEDS ORDERED: MIDAZOLAM 2 MG/2 ML VIAL ONE (11:46)
[2018-08-11 11:50] LABS: Glucose,Whole Blood 135 mg/dL (75-99)
[2018-08-11] MEDS ORDERED: LIDOCAINE 1% INJ 10MG/ML (20 ML MDV) ONE ×3 (12:08→15:03)
[2018-08-11] MEDS ORDERED: HEPARIN SODIUM 1,000 UN/ML (10ML VL) ONE (12:09)
[2018-08-11] MEDS ORDERED: LIDOCAINE 1% INJ 10MG/ML (20 ML MDV) SQ ONE ×2 (12:19→15:03)
[2018-08-11] MEDS: LIDOCAINE 1% INJ 10MG/ML (20 ML MDV) SQ ONE ×2 (12:30→14:33)
[2018-08-11] MEDS ORDERED: HEPARIN SODIUM (1,000 UNIT/ML) 1,000 UNIT in SODIUM CHLORIDE 0.9% 1,000 ML IRRIGATION ONE (13:40)
[2018-08-11] MEDS ORDERED: LACTATED RINGERS 1,000 ML IV ONE (15:11)
[2018-08-11] MEDS ORDERED: ACETAMINOPHEN TAB 325 MG TAB PO PRN (16:16)
[2018-08-11] MEDS ORDERED: ACETAMINOPHEN IV (For NPO) 1,000 MG in EMPTY BAG 1 BAG IVPB ONE (16:16)
[2018-08-11] MEDS: LACTATED RINGERS 1,000 ML IV SCH (16:52)
[2018-08-11 16:53] LABS: Glucose,Whole Blood 100 mg/dL (75-99)
[2018-08-11] MEDS: SODIUM CHLORIDE 0.9% 1,000 ML IV SCH (16:53)
[2018-08-11 17:30] VITALS: BMI 35.6
[2018-08-11] MEDS: metFORMIN 500 MG TAB PO SCH (17:43)
[2018-08-11] MEDS: HYDROcodone/APAP 5-325MG 1 EACH TAB PO PRN (17:59)
[2018-08-11] MEDS ORDERED: NADOLOL 20 MG TAB PO SCH (21:00)
[2018-08-11 23:17] LABS: Glucose,Whole Blood 215 mg/dL (75-99)
[2018-08-12] MEDS: LACTATED RINGERS 1,000 ML IV SCH (01:34)
[2018-08-12] MEDS: HYDROcodone/APAP 5-325MG 1 EACH TAB PO PRN ×2 (02:58→10:39)
[2018-08-12 04:11] VITALS: RESP 18; TEMP 97.8
[2018-08-12] MEDS ORDERED: HYDROmorphone 0.5 MG/0.5 ML SYRINGE IVP STA (05:27)
[2018-08-12] MEDS: SODIUM CHLORIDE 0.9% 1,000 ML IV SCH (06:37)
[2018-08-12 06:43] LABS: Glucose,Whole Blood 147 mg/dL (75-99)
--- NOTE | 2018-08-12 06:54 | CE ---
CARDIAC ELECTROPHYSIOLOGY REPORT This is a 47-year-old female with history of exercise induced PVCs, ventricular couplets, ventricular triplets and nonsustained ventricular tachycardia with normal left ventricular ejection fraction, normal coronary arteries was brought in for diagnostic EP study and possible radiofrequency ablation of the PVC and VT focus. Her PVCs appear to be originating from the right ventricular outflow tract. Patient was brought to the EP lab in a fasting state. Written informed consent was obtained prior to the procedure. The right and left groins were prepped and draped as per protocol. Venous sheaths were placed in the right and left femoral veins via these diagnostic catheters were placed in the right heart. The baseline measurements were as follows: Sinus cycle length 1060 milliseconds, DE interval 129 milliseconds, QRS 106 milliseconds, QT 391 milliseconds. Baseline AH interval 56 milliseconds. Baseline HV interval 33 milliseconds. A detailed EP study was performed both on and off Isuprel, but the patient had only 2 PVCs during the entire diagnostic procedure. There was nonsustained ventricular tachycardia could not be induced, PVCs could not be induced despite high right atrial pacing, RV pacing, coronary sinus pacing, extra stimulation burst stimulation, both on and off high-dose Isuprel. Sinus node recovery times of 600, 500 and 400 milliseconds were 1334, 1494 and 1578 milliseconds. Corresponding corrected sinus node recovery times were mildly prolonged at a paced cycle length of 400 milliseconds. AV node Wenckebach block 330 milliseconds, VA Wenckebach block 450 milliseconds. There was no evidence for delta waves. No evidence of slow pathway conduction. Para Hisian pacing was performed and a angelica response was noted. Atrial extra stimulation was performed from the high right atrium and from the coronary sinus. Burst stimulation was performed from the coronary sinus. No atrial or ventricular arrhythmias were noted. Isuprel was started at high dose and then later even at low dose. Burst stimulation was performed from the right ventricle. Ventricular extra stimulation at 2 drive trains from 2 different sites up to double extra stimuli performed. No ventricular arrhythmias induced. During the entire procedure, the patient did not have nonsustained ventricular tachycardia, PVCs or ventricular couplets other than 2 PVCs. The 2 PVCs had a 99% concordance and appeared to be originating from the RVOT. The PVC QRS was upright in lead I. The left bundle branch block pattern in V1. Upright QRS in lead II and aVF, but negatively oriented QRS in lead III. A 3-D electroanatomic mapping of the RVOT was performed. The patient had a large RVOT. She also had a very rotated heart. This was a difficult procedure that required considerable manipulation of the catheter and careful mapping of the entire RVOT from the pulmonic valve down to the His bundle. The His bundle area was carefully mapped and the His bundle area was tagged. Initially along the posterior/free wall area pace maps appeared to be fairly good and RF ablation was performed here; however, with noncapture at high output. However, as we continue to map in more detail pace maps with a concordance of almost 98% to 99%, a virtually perfect pace map was obtained. However, the perfect pace map was obtained just beyond the His bundle with right bundle signal with HV interval of about 25 milliseconds. The area around this and above the His was carefully pace mapped, but the best pace map was obtained just on the His. Therefore, no ablation was performed at this site. At the end of the procedure, all catheters were removed and patient was transferred back to telemetry. RESULT: Detailed diagnostic EP study revealing mildly abnormal sinus node function, normal AV node function without any delta waves or slow pathway conduction. No inducible arrhythmias. No spontaneous PVCs, VT or nonsustained VT with high-dose Isuprel and ventricular stimulation. Only 2 spontaneous PVCs were noted and these were identical PVCs. Initially they were mapped along the posterior wall/free wall under the pulmonic valve and RF ablation was applied here. However, following that even better pace maps were obtained and in fact pace mapped with a 99% concordance with repeat interrogations, was obtained just distal to the His bundle with HV interval was about 25 milliseconds. Therefore, no further ablations were performed. PLAN: Nadolol 20 mg p.o. daily and if in the future she has any PVCs and nonsustained ventricular tachycardia with exercise, an exercise stress test will also be performed on nadolol, then the morphology of those will be compared with the morphology of these 2 PVCs. If the morphology of those PVCs show that the PVC was negatively oriented in lead III, then no further mapping will be performed since this PVC originates right on the His bundle. However, if her PVCs show an upright QRS in leads II, III, aVF, then she will be brought back for an EP study since this would be a separate and distinct site. Unfortunately, she did not have any nonsustained ventricular tachycardia other than only 2 PVCs during the entire EP study. REJI / KATEN: [id number] /
[2018-08-12] MEDS ORDERED: SODIUM CHLORIDE 0.9% 500 ML 250 ML IV ONE (07:32)
[2018-08-12] MEDS ORDERED: NADOLOL 20 MG TAB PO SCH (09:00)
[2018-08-12] MEDS: metFORMIN 500 MG TAB PO SCH (09:31)
[2018-08-12] MEDS ORDERED: SODIUM CHLORIDE 0.9% 500 ML 500 ML IV ONE (10:33)
--- NOTE | 2018-08-12 11:40 | P.DS ---
Providers Attending physician: Nando Fragoso Primary care physician: [facility] [place] Course: Patient is resting comfortably in bed and she is lying flat in bed using CPAP mask. She has been walking around. No dizziness no chest discomfort no arrhythmias Her blood pressure was low especially after the Dilaudid made given IV fluids. The patient denies chest discomfort or any pruritic chest discomfort or dizziness or presyncope Heart sounds are normal normal S1 normal S2 Breath sounds are clear no rhonchi no crackles Extremities warm no edema No JVD Increased BMI Impression Exercise-induced PVCs ventricular couplets and nonsustained atrial tachycardia Only to PVCs during the entire EP procedure noted. These PVCs were mapped with a bundle/right bundle Medical treatment recommended Suggest Consider nadolol between 10-20 mg by mouth once a blood pressure normalizes and exercise stress test on nadolol Low dose DIMPLE inhibitor since she is diabetic Weight reduction Impression we'll go home later today to Dr. Colby in about 1-2 weeks Patient Condition at Discharge: Stable Plan - Discharge Summary Discharge Rx Participant: Yes New Discharge Prescriptions: Continue Lisinopril 20 mg PO DAILY metFORMIN HCL [Glucophage] 1,000 mg PO BID HYDROcodone/APAP 10-325MG [[place] 10-325] 1 tab PO Q4HR PRN PRN Reason: Pain Discharge Medication List Lisinopril 20 mg PO DAILY 07/04/18 [History] metFORMIN HCL [Glucophage] 1,000 mg PO BID 08/08/18 [History] HYDROcodone/APAP 10-325MG [[place] 10-325] 1 tab PO Q4HR PRN 08/11/18 [History] Activity/Diet/Wound Care/Special Instructions: Post EP study - Ablation instructions 1. Keep access sites dry for 2 days. 2. No heavy lifting or straining for 2 days. 3. Avoid bending the hips repeatedly for 2 days. 4. You may go up and down stairs slowly Call if the following is noted 1. Bleeding, increasing swelling or pain at the access sites. 2. Increasing chest discomfort, especially upon taking a deep breath. 3. Increasing shortness of breath, at rest or with exertion. 4. Undue cough / phlegm 5. Difficulty or pain while swallowing. 6. Pain or change in color in the extremities. 7. Fever, chills, rigors. 8. Increasing headache or neurologic symptoms. 9. Dizziness, fainting, palpitations Start nadolol 20 mg by mouth daily Follow-up with with Dr. Colby/Rachel Soliz within 1 week Discharge Disposition: HOME SELF-CARE
[2018-08-12 11:50] LABS: Glucose,Whole Blood 139 mg/dL (75-99)
[2018-08-12 12:32] VITALS: PULSE 50
--- NOTE | 2018-08-12 13:32 | ECHOF ---
Referral Reason:low bp post eps MEASUREMENTS -------- HEIGHT: 167.6 cm WEIGHT: 86.2 kg BP: 102/70 FINDINGS -------- This was a technically adequate study. Limited Study for assessment of pericardial effusion. There is no pericardial effusion. CONCLUSIONS -------- 1. This was a technically adequate study. 2. Limited Study for assessment of pericardial effusion. 3. There is no pericardial effusion. G[employer]ODITY MANAGER: Alex Garza RDCS
[2018-08-12 14:55] VITALS: BP 106/70
[2018-08-12 16:45] LABS: Glucose,Whole Blood 151 mg/dL (75-99)
== END 2018-08-12 17:03 | disposition home or self-care (01) ==
LOC: CATHEP 11:02 → 1SOBS 15:52 → CATHEP 08-12 17:03
PROVIDERS: ATTEND Internal Medicine Clinical Cardiac Electrophysiology
DX: I49.3 Ventricular premature depolarization (principal); I47.2 Ventricular tachycardia; E11.9 Type 2 diabetes mellitus without complications; I10 Essential (primary) hypertension; G47.33 Obstructive sleep apnea (adult) (pediatric); Z72.0 Tobacco use; Z99.89 Dependence on other enabling machines and devices; Z79.84 Long term (current) use of oral hypoglycemic drugs; Z79.899 Other long term (current) drug therapy
CPT/HCPCS: 93308; 93623; 93654; C1894; C1769 ×2; C1730 ×3; C1893; C1732; J2250; J2001; J3010; J1644; J2704; J1170; 93613

== ENCOUNTER 2020-08-29 21:09 | Emergency (ER) | payer OTHER ==
[2020-08-30 01:09] LABS: Basophils # (A) 0.1 k/uL (0-0.2); Basophils % (A) 1 %; Eosinophils # (A) 0.6 k/uL (0-0.7); Eosinophils % (A) 4 %; HCT 39.2 % (34.0-46.0); HGB 13.8 gm/dL (11.4-16.0); Lymphocytes # (A) 3.2 k/uL (1.0-4.8); Lymphocytes % (A) 20 %; MCH 31.5 pg (25.0-35.0); MCHC 35.1 g/dL (31.0-37.0); MCV 89.8 fL (80.0-100.0); Mean Platelet Volume 7.7; Monocytes % (A) 6 %; Neutrophils % (A) 68 %; Platelet Count 368 k/uL (150-450); RBC 4.36 m/uL (3.80-5.40); RDW 12.8 % (11.5-15.5); WBC 16.1 k/uL (3.8-10.6)
[2020-08-30 01:23] LABS: ALT 15 U/L (4-34); AST 19 U/L (14-36); African American GFR (CKD) >90 (>60 ml/min/1.73 sqM); Albumin 4.4 g/dL (3.5-5.0); Alkaline Phosphatase 91 U/L (38-126); Amylase 52 U/L (30-110); Anion Gap 10 mmol/L; Blood Urea Nitrogen 20 mg/dL (7-17); Calcium 9.9 mg/dL (8.4-10.2); Carbon Dioxide 25 mmol/L (22-30); Chloride 99 mmol/L (98-107); Glucose 224 mg/dL (74-99); Lipase 177 U/L (23-300); Non-African American GFR(CKD) >90 (>60 ml/min/1.73 sqM); Potassium 3.8 mmol/L (3.5-5.1); Sodium 134 mmol/L (137-145); Total Bilirubin 0.5 mg/dL (0.2-1.3); Total Protein 7.5 g/dL (6.3-8.2)
--- NOTE | 2020-08-30 01:28 | ED ---
Abdominal Pain HPI - General Chief Complaint: Abdominal Pain Stated Complaint: Fever,ABD pain Source: patient, RN notes reviewed Mode of arrival: ambulatory Limitations: no limitations - History of Present Illness Initial Comments: 49-year-old female presents emergency Department chief complaint of left lower quadrant abdominal pain. Patient states pain is increased last few days. Patient states that she's had some symptoms for last couple weeks. Patient does have a history of diverticulitis. No urinary complaints. Patient's had some diarrhea, shaking chills afterwards. Patient reports fever.patient's had slight nausea. - Related Data Home Medications Medication Instructions Recorded Confirmed lisinopriL 20 mg PO DAILY 07/04/18 08/11/18 metFORMIN HCL [Glucophage] 1,000 mg PO BID 08/08/18 08/11/18 HYDROcodone/APAP 10-325MG [[place] 1 tab PO Q4HR PRN 08/11/18 08/11/18 10-325] Previous Rx's Medication Instructions Recorded Amoxicillin/Potassium Clav 1 tab PO Q12HR #20 tab 08/30/20 [Augmentin 875-125 Tablet] Ondansetron Odt [Zofran Odt] 4 mg PO Q8HR PRN #10 tab 08/30/20 Allergies Allergy/AdvReac Type Severity Reaction Status Date / Time No Known Allergies Allergy Verified 08/29/20 21:45 Review of Systems ROS Statement: Those systems with pertinent positive or pertinent negative responses have been documented in the HPI. ROS Other: All systems not noted in ROS Statement are negative. Past Medical History Past Medical History: Diabetes Mellitus, Eye Disorder, Hypertension Additional Past Medical History / Comment(s): cataracts left eye History of Any Multi-Drug Resistant Organisms: None Reported Past Surgical History: Section, Tonsillectomy Additional Past Surgical History / Comment(s): CATARACT SURGERY- LEFT EYE WITH IMPLANT Past Anesthesia/Blood Transfusion Reactions: No Reported Reaction Past Psychological History: No Psychological Hx Reported Past Alcohol Use History: Occasional Past Drug Use History: None Reported - Past Family History Father Family Medical History: Hypertension Additional Family Medical History / Comment(s): PUD Mother Family Medical History: Hypertension, Thyroid Disorder Additional Family Medical History / Comment(s): aneurysm General Exam Limitations: no limitations General appearance: alert, in no apparent distress Head exam: Present: atraumatic, normocephalic, normal inspection Respiratory exam: Present: normal lung sounds bilaterally. Absent: respiratory distress, wheezes, rales, rhonchi, stridor Cardiovascular Exam: Present: regular rate, normal rhythm, normal heart sounds. Absent: systolic murmur, diastolic murmur, rubs, gallop, clicks GI/Abdominal exam: Present: soft, tenderness (moderate left upper quadrant), normal bowel sounds. Absent: distended, guarding, rebound, rigid Back exam: Absent: CVA tenderness (R), CVA tenderness (L) Neurological exam: Present: alert, oriented X3 Skin exam: Present: warm, dry, intact, normal color. Absent: rash Course Vital Signs 08/29/20 08/30/20 21:42 01:25 Temperature 97.9 F 97.9 F Pulse Rate 83 85 Respiratory 16 18 Rate Blood Pressure 147/83 144/95 O2 Sat by Pulse 97 97 Oximetry Medical Decision Making - Medical Decision Making 41-year-old female presents emergency from chief complaint of left lower quadrant abdominal pain CT shows evidence of early diverticulitis. Patient does have some bacteria in her urinalysis. Patient was given Rocephin. Patient will be discharged with antibiotics, liquid diet, pain medication - Lab Data Result diagrams: 08/30/20 00:50 08/30/20 00:50 Lab Results 08/30/20 08/30/20 08/30/20 Range/Units 00:50 00:50 00:50 WBC 16.1 H (3.8-10.6) k/uL RBC 4.36 (3.80-5.40) m/uL Hgb 13.8 (11.4-16.0) gm/dL Hct 39.2 (34.0-46.0) % MCV 89.8 (80.0-100.0) fL MCH 31.5 (25.0-35.0) pg MCHC 35.1 (31.0-37.0) g/dL RDW 12.8 (11.5-15.5) % Plt Count 368 (150-450) k/uL MPV 7.7 Neutrophils % 68 % Lymphocytes % 20 % Monocytes % 6 % Eosinophils % 4 % Basophils % 1 % Neutrophils # 11.0 H (1.3-7.7) k/uL Lymphocytes # 3.2 (1.0-4.8) k/uL Monocytes # 1.0 (0-1.0) k/uL Eosinophils # 0.6 (0-0.7) k/uL Basophils # 0.1 (0-0.2) k/uL Sodium 134 L (137-145) mmol/L Potassium 3.8 (3.5-5.1) mmol/L Chloride 99 (98-107) mmol/L Carbon Dioxide 25 (22-30) mmol/L Anion Gap 10 mmol/L BUN 20 H (7-17) mg/dL Creatinine 0.69 (0.52-1.04) mg/dL Est GFR (CKD-EPI)AfAm >90 (>60 ml/min/1.73 sqM) Est GFR (CKD-EPI)NonAf >90 (>60 ml/min/1.73 sqM) Glucose 224 H (74-99) mg/dL Plasma Lactic Acid Jaxon (0.7-2.0) mmol/L Calcium 9.9 (8.4-10.2) mg/dL Total Bilirubin 0.5 (0.2-1.3) mg/dL AST 19 (14-36) U/L ALT 15 (4-34) U/L Alkaline Phosphatase 91 (38-126) U/L Total Protein 7.5 (6.3-8.2) g/dL Albumin 4.4 (3.5-5.0) g/dL Amylase 52 (30-110) U/L Lipase 177 (23-300) U/L Urine Color Light Yellow Urine Appearance Clear (Clear) Urine pH 5.5 (5.0-8.0) Ur Specific [place] 1.013 (1.001-1.035) Urine Protein Negative (Negative) Urine Glucose (UA) 1+ H (Negative) Urine Ketones Negative (Negative) Urine Blood Negative (Negative) Urine Nitrite Negative (Negative) Urine Bilirubin Negative (Negative) Urine Urobilinogen <2.0 (<2.0) mg/dL Ur Leukocyte Esterase Large H (Negative) Urine RBC 1 (0-5) /hpf Urine WBC 15 H (0-5) /hpf Ur Squamous Epith Cells 1 (0-4) /hpf Urine Bacteria Rare H (None) /hpf Hyaline Casts 1 (0-2) /lpf 08/30/20 Range/Units 00:50 WBC (3.8-10.6) k/uL RBC (3.80-5.40) m/uL Hgb (11.4-16.0) gm/dL Hct (34.0-46.0) % MCV (80.0-100.0) fL MCH (25.0-35.0) pg MCHC (31.0-37.0) g/dL RDW (11.5-15.5) % Plt Count (150-450) k/uL MPV Neutrophils % % Lymphocytes % % Monocytes % % Eosinophils % % Basophils % % Neutrophils # (1.3-7.7) k/uL Lymphocytes # (1.0-4.8) k/uL Monocytes # (0-1.0) k/uL Eosinophils # (0-0.7) k/uL Basophils # (0-0.2) k/uL Sodium (137-145) mmol/L Potassium (3.5-5.1) mmol/L Chloride (98-107) mmol/L Carbon Dioxide (22-30) mmol/L Anion Gap mmol/L BUN (7-17) mg/dL Creatinine (0.52-1.04) mg/dL Est GFR (CKD-EPI)AfAm (>60 ml/min/1.73 sqM) Est GFR (CKD-EPI)NonAf (>60 ml/min/1.73 sqM) Glucose (74-99) mg/dL Plasma Lactic Acid Jaxon 1.7 (0.7-2.0) mmol/L Calcium (8.4-10.2) mg/dL Total Bilirubin (0.2-1.3) mg/dL AST (14-36) U/L ALT (4-34) U/L Alkaline Phosphatase (38-126) U/L Total Protein (6.3-8.2) g/dL Albumin (3.5-5.0) g/dL Amylase (30-110) U/L Lipase (23-300) U/L Urine Color Urine Appearance (Clear) Urine pH (5.0-8.0) Ur Specific [place] (1.001-1.035) Urine Protein (Negative) Urine Glucose (UA) (Negative) Urine Ketones (Negative) Urine Blood (Negative) Urine Nitrite (Negative) Urine Bilirubin (Negative) Urine Urobilinogen (<2.0) mg/dL Ur Leukocyte Esterase (Negative) Urine RBC (0-5) /hpf Urine WBC (0-5) /hpf Ur Squamous Epith Cells (0-4) /hpf Urine Bacteria (None) /hpf Hyaline Casts (0-2) /lpf Disposition Clinical Impression: Diverticulitis, UTI (urinary tract infection) Disposition: HOME SELF-CARE Condition: Stable Instructions (If sedation given, give patient instructions): Diverticulitis (ED) Additional Instructions: Please return to the Emergency Department if symptoms worsen or any other concerns. Prescriptions: Amoxicillin/Potassium Clav [Augmentin 875-125 Tablet] 1 tab PO Q12HR #20 tab Ondansetron Odt [Zofran Odt] 4 mg PO Q8HR PRN #10 tab PRN Reason: Nausea Is patient prescribed a controlled substance at d/c from ED?: No Referrals: Barb Young MD [Primary Care Provider] - 1-2 days Time of Disposition: 02:41
[2020-08-30 01:44] LABS: Appearance,Urine Clear (Clear); Bacteria,Urine Rare /hpf; Bilirubin,Urine Negative (Negative); Blood,Urine Negative (Negative); Color,Urine Light Yellow; Glucose,Urine (UA) 1+ (Negative); Hyaline Casts,Urine 1 /lpf (0-2); Ketones,Urine Negative (Negative); Leukocyte Esterase,Urine Large (Negative); Nitrite,Urine Negative (Negative); PH, Urine 5.5 (5.0-8.0); Protein,Urine Negative (Negative); RBC,Urine 1 /hpf (0-5); Specific Gravity,Urine 1.013 (1.001-1.035); Squamous Epithelial Cell,Urine 1 /hpf (0-4); Urobilinogen,Urine <2.0 mg/dL (<2.0); WBC,Urine 15 /hpf (0-5)
[2020-08-30] MEDS ORDERED: KETOROLAC 15 MG/ML 1 ML VIAL IVP STA (01:44)
--- NOTE | 2020-08-30 02:30 | CT ---
EXAM: CT Abdomen and Pelvis With Intravenous Contrast CLINICAL HISTORY: LLQ pain TECHNIQUE: Axial computed tomography images of the abdomen and pelvis with intravenous contrast. CTDI is 28.97 mGy and DLP is 1574.4 mGy-cm. This CT exam was performed using one or more of the following dose reduction techniques: automated exposure control, adjustment of the mA and/or kV according to patient size, and/or use of iterative reconstruction technique. Coronal and sagittal reformatted images were created and reviewed. COMPARISON: 11/25/16 FINDINGS: Artifacts: Motion artifact slightly decreases the sensitivity of this exam. Lung bases: Unremarkable. No mass. No consolidation. ABDOMEN: Liver: Moderate hepatomegaly. No mass. Gallbladder and bile ducts: Unremarkable. No calcified stones. No ductal dilation. Pancreas: Unremarkable. No mass. No ductal dilation. Spleen: Unremarkable. No splenomegaly. Adrenals: Unremarkable. No mass. Kidneys and ureters: Unremarkable. No solid mass. No hydronephrosis. Stomach and bowel: Mild circumferential wall thickening of short segment of proximal sigmoid colon in anterior left pelvis with associated diverticula, surrounded by trace of mesenteric inflammation on series 201 images 64-71, suggest early diverticulitis. No obstruction. PELVIS: Appendix: Normal appendix Bladder: Unremarkable. No mass. Reproductive: Unremarkable as visualized. ABDOMEN and PELVIS: Intraperitoneal space: Unremarkable. No free air. No significant fluid collection. Bones/joints: No acute findings. Soft tissues: Unremarkable. Vasculature: Unremarkable. No abdominal aortic aneurysm. Lymph nodes: Unremarkable. No enlarged lymph nodes. IMPRESSION: Early sigmoid diverticulitis. No perforation or abscess.
[2020-08-30] MEDS ORDERED: cefTRIAXone IN SWFI 1,000 MG/10 ML SYRINGE IVP STA (02:40)
[2020-08-30] MEDS ORDERED: ACET/COD 300 MG/30 MG STARTER PACK 6 TAB BTL PO STA (02:41)
[2020-08-30 03:50] VITALS: BP 135/73; PULSE 89; RESP 16; TEMP 98.8
== END 2020-08-30 03:48 | disposition home or self-care (01) ==
LOC: EC 21:09
DX: K57.32 Diverticulitis of large intestine without perforation or abscess without bleeding (principal); N39.0 Urinary tract infection, site not specified; I10 Essential (primary) hypertension; E11.9 Type 2 diabetes mellitus without complications; Z79.84 Long term (current) use of oral hypoglycemic drugs
CPT/HCPCS: 99284; 96374; 96375; 36415; 80053; 82150; 83605; 83690; 85025; 81001; 87086; 74177; J0696; J1885

== ENCOUNTER 2021-03-06 17:53 | Emergency (ER) | payer OTHER ==
[2021-03-06 19:14] VITALS: TEMP 98.4
--- NOTE | 2021-03-06 19:50 | XR ---
EXAMINATION TYPE: XR shoulder complete LT DATE OF EXAM: 03/06/2021 COMPARISON: NONE HISTORY: Shoulder pain TECHNIQUE: 3 views FINDINGS: I see no fracture nor dislocation. Joint spaces are normal. IMPRESSION: Negative left shoulder exam.
[2021-03-06 20:06] VITALS: BP 135/85; PULSE 87; RESP 20
[2021-03-06] MEDS ORDERED: KETOROLAC 15 MG/ML 1 ML VIAL IVP STA (20:10)
[2021-03-06] MEDS ORDERED: ORPHENADRINE 30 MG/ML 2 ML VIAL IM STA (20:10)
--- NOTE | 2021-03-06 20:13 | ED ---
General Adult HPI - General Chief complaint: Extremity Injury, Upper Stated complaint: shoulder pain Time Seen by Provider: 03/06/21 20:03 Source: patient, RN notes reviewed, old records reviewed Mode of arrival: ambulatory Limitations: no limitations - History of Present Illness Initial comments: 50-year-old well-appearing female presents to the emergency room with complaints of left shoulder pain for one week. She states that she attributes it to driving her car without power steering and having to push/pull the steering wheel. She states that she has been using kinesiology tape and Motrin with no relief. She states she has point tenderness pain to the proximal humerus. She states she works for [employer] as directed to come to the emergency room. Her position of comfort is adduction. -: week(s) (1) Location: left, upper extremity (Shoulder) Radiation: distal Severity scale (1-10): 10 Quality: sharp, constant Consistency: constant Improves with: none Worsens with: movement Associated Symptoms: denies other symptoms Treatments Prior to Arrival: NSAID, other (Kinesiology tape) - Related Data Home Medications Medication Instructions Recorded Confirmed lisinopriL 20 mg PO DAILY 07/04/18 08/11/18 metFORMIN HCL [Glucophage] 1,000 mg PO BID 08/08/18 08/11/18 HYDROcodone/APAP 10-325MG [[place] 1 tab PO Q4HR PRN 08/11/18 08/11/18 10-325] Previous Rx's Medication Instructions Recorded Amoxicillin/Potassium Clav 1 tab PO Q12HR #20 tab 08/30/20 [Augmentin 875-125 Tablet] Ondansetron Odt [Zofran Odt] 4 mg PO Q8HR PRN #10 tab 08/30/20 Allergies Allergy/AdvReac Type Severity Reaction Status Date / Time No Known Allergies Allergy Verified 03/06/21 19:11 Review of Systems ROS Statement: Those systems with pertinent positive or pertinent negative responses have been documented in the HPI. ROS Other: All systems not noted in ROS Statement are negative. Past Medical History Past Medical History: Diabetes Mellitus, Eye Disorder, Hypertension Additional Past Medical History / Comment(s): cataracts left eye History of Any Multi-Drug Resistant Organisms: None Reported Past Surgical History: Section, Tonsillectomy Additional Past Surgical History / Comment(s): CATARACT SURGERY- LEFT EYE WITH IMPLANT Past Anesthesia/Blood Transfusion Reactions: No Reported Reaction Past Psychological History: No Psychological Hx Reported Smoking Status: Former smoker Past Alcohol Use History: Occasional Past Drug Use History: None Reported - Past Family History Father Family Medical History: Hypertension Additional Family Medical History / Comment(s): PUD Mother Family Medical History: Hypertension, Thyroid Disorder Additional Family Medical History / Comment(s): aneurysm General Exam Limitations: no limitations Course Vital Signs 03/06/21 03/06/21 19:12 20:03 Temperature 98.4 F Pulse Rate 101 H 87 Respiratory 18 20 Rate Blood Pressure 153/82 135/85 O2 Sat by Pulse 99 99 Oximetry Medical Decision Making - Medical Decision Making 50-year-old female complaining of left proximal humerus pain. She states there is point tenderness at the proximal humerus and that she's been using kinesiology tape and taking Motrin with no relief. 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 She denies any chest pain or shortness of breath. X- rays negative for fracture dislocation. She is neurovascularly intact. She was given Norflex and Toradol and Amonate in the emergency room. Patient requesting an IV and IV pain medication states that IV meds have helped her with her pain in the past. I did explain to patient that medication would last longer and is not as invasive as intravenous medications. She was also directed not to drive home after medications given today. She was given a starter pack of tramadol to go home with as well. Patient is sitting on the cart eating a turkey sandwich at this time. No vomiting or abdominal pain or chest pain complaints. She is instructed not to drive the car that has no power steering that could exacerbate the pain or worsen the injury. She was also advised not to drive while taking any narcotic pain medications. She was directed to follow-up with orthopedic associates. Patient was placed in a sling. Case was discussed with Dr. Davidson who is agreeable to this plan of care. Disposition Clinical Impression: Shoulder pain, left Disposition: HOME SELF-CARE Condition: Good Instructions (If sedation given, give patient instructions): Shoulder Pain (ED) Additional Instructions: Motrin 600 mg every 8 hours and tramadol as needed for pain. Follow-up with [employer] associates this week. Return if any new or worsening symptoms including chest pain or shortness of breath. Is patient prescribed a controlled substance at d/c from ED?: No Referrals: Barb Young MD [Primary Care Provider] - 1-2 days Time of Disposition: 21:13
[2021-03-06] MEDS ORDERED: KETOROLAC 15 MG/ML 1 ML VIAL IM STA (20:22)
[2021-03-06] MEDS ORDERED: HYDROcodone/APAP 5-325MG 1 EACH TAB PO STA (20:47)
[2021-03-06] MEDS ORDERED: traMADol 50 MG STARTER PACK 3 TAB BTL PO STA (21:10)
[2021-03-06] MEDS ORDERED: MORPHINE SULFATE 4 MG/ML SYRINGE IM STA (21:15)
== END 2021-03-06 21:38 | disposition home or self-care (01) ==
LOC: EC 17:53
DX: M25.512 Pain in left shoulder (principal); E11.9 Type 2 diabetes mellitus without complications; I10 Essential (primary) hypertension; Z87.891 Personal history of nicotine dependence; Z79.899 Other long term (current) drug therapy; X50.0XXA Overexertion from strenuous movement or load, initial encounter; Z79.84 Long term (current) use of oral hypoglycemic drugs; Y93.89 Activity, other specified
CPT/HCPCS: 99283; 96372 ×2; 73030; J2270; J2360; J1885

== ENCOUNTER 2021-03-14 11:29 | Inpatient (IN) | payer OTHER ==
[2021-03-14] MEDS ORDERED: hydrALAZINE HCL 20 MG/ML 1 ML VIAL IVP STA (13:09)
--- NOTE | 2021-03-14 13:16 | ED ---
General Adult HPI - General Chief complaint: Chest Pain Stated complaint: High BP/Back pain/Flutter feeling Time Seen by Provider: 03/14/21 12:00 Source: patient, RN notes reviewed, old records reviewed Mode of arrival: wheelchair Limitations: no limitations - History of Present Illness Initial comments: This is a 50-year-old female presents emergency department with past medical history significant for high blood pressure. Patient states this morning at 6:00 she started having a little bit of headache and some blurred vision. Patient's blood pressure was elevated she took an extra dose of her blood pressure medication 2 hours prior to arrival. Patient states she felt some fluttering in her chest but no chest pain or pressure. Patient denies any difficulty breathing or shortness of breath. Patient denies any recent fever chills or cough. Patient denies any back pain. Patient denies being lightheaded or dizzy. Patient denies any swelling to answer calf tenderness. Patient denies any abdominal pain. - Related Data Home Medications Medication Instructions Recorded Confirmed Hydrocodone/Acetaminophen [[place] 1 tab PO Q4HR PRN 03/14/21 03/14/21 7.5-325] Lisinopril-Hctz 20-12.5 mg 1 tab PO DAILY 03/14/21 03/14/21 [Zestoretic 20-12.5] metFORMIN HCL 1,000 mg PO BID 03/14/21 03/14/21 predniSONE [Deltasone] See Taper PO DAILY 03/14/21 03/14/21 Allergies Allergy/AdvReac Type Severity Reaction Status Date / Time No Known Allergies Allergy Verified 03/14/21 13:26 Review of Systems ROS Statement: Those systems with pertinent positive or pertinent negative responses have been documented in the HPI. ROS Other: All systems not noted in ROS Statement are negative. Past Medical History Past Medical History: Diabetes Mellitus, Eye Disorder, Hypertension Additional Past Medical History / Comment(s): cataracts left eye History of Any Multi-Drug Resistant Organisms: None Reported Past Surgical History: Section, Tonsillectomy Additional Past Surgical History / Comment(s): CATARACT SURGERY- LEFT EYE WITH IMPLANT Past Anesthesia/Blood Transfusion Reactions: No Reported Reaction Past Psychological History: No Psychological Hx Reported Smoking Status: Former smoker Past Alcohol Use History: Occasional Past Drug Use History: None Reported - Past Family History Father Family Medical History: Hypertension Additional Family Medical History / Comment(s): PUD Mother Family Medical History: Hypertension, Thyroid Disorder Additional Family Medical History / Comment(s): aneurysm General Exam - General Exam Comments Initial Comments: GENERAL: Patient is well-developed and well-nourished. Patient is nontoxic and well- hydrated and is in mild distress. ENT: Neck is soft and supple. No significant lymphadenopathy is noted. Oropharynx is clear. Moist mucous membranes. Neck has full range of motion without eliciting any pain. EYES: The sclera were anicteric and conjunctiva were pink and moist. Extraocular movements were intact and pupils were equal round and reactive to light. Eyelids were unremarkable. PULMONARY: Unlabored respirations. Good breath sounds bilaterally. No audible rales rhonchi or wheezing was noted. CARDIOVASCULAR: There is a regular rate and rhythm without any murmurs gallops or rubs. ABDOMEN: Soft and nontender with normal bowel sounds. SKIN: Skin is clear with no lesions or rashes and otherwise unremarkable. NEUROLOGIC: Patient is alert and oriented x3. Cranial nerves II through XII are grossly intact. Motor and sensory are also intact. Normal speech, volume and content. Symmetrical smile. MUSCULOSKELETAL: Normal extremities with adequate strength and full range of motion. LYMPHATICS: No significant lymphadenopathy is noted PSYCHIATRIC: Normal psychiatric evaluation. Limitations: no limitations Course Vital Signs 03/14/21 03/14/21 03/14/21 11:38 13:33 13:43 Temperature 98.3 F Pulse Rate 85 83 Respiratory 18 18 Rate Blood Pressure 191/108 163/103 144/88 O2 Sat by Pulse 97 97 Oximetry Medical Decision Making - Medical Decision Making EKG shows normal sinus rhythm at 83 bpm AR interval 246 dresses 104 QT interval 398 QTC is 467. Patient's EKG shows no ST segment elevation or depression. Patient's CAT scan of the head shows no acute abnormality. Patient's sodium was 123 she received a 500 mL bolus. Patient's magnesium was 1.2 she received 2 g of mag sulfate. Patient still complained of a headache she was given Tylenol and 2 mg morphine. I spoke with Dr. Leblanc he agreed to admit the patient admitted the patient wrote admitting orders. - Lab Data Result diagrams: 03/14/21 13:28 03/14/21 13:28 Lab Results 03/14/21 03/14/21 03/14/21 Range/Units 13:28 13:28 13:28 WBC 13.9 H (3.8-10.6) k/uL RBC 4.00 (3.80-5.40) m/uL Hgb 12.7 (11.4-16.0) gm/dL Hct 36.2 (34.0-46.0) % MCV 90.5 (80.0-100.0) fL MCH 31.8 (25.0-35.0) pg MCHC 35.1 (31.0-37.0) g/dL RDW 12.2 (11.5-15.5) % Plt Count 580 H (150-450) k/uL MPV 6.9 Neutrophils % 57 % Lymphocytes % 33 % Monocytes % 6 % Eosinophils % 2 % Basophils % 1 % Neutrophils # 7.9 H (1.3-7.7) k/uL Lymphocytes # 4.6 (1.0-4.8) k/uL Monocytes # 0.8 (0-1.0) k/uL Eosinophils # 0.2 (0-0.7) k/uL Basophils # 0.1 (0-0.2) k/uL PT 10.2 (9.0-12.0) sec INR 0.9 (<1.2) APTT 22.4 (22.0-30.0) sec Sodium 123 L (137-145) mmol/L Potassium 4.1 (3.5-5.1) mmol/L Chloride 84 L (98-107) mmol/L Carbon Dioxide 26 (22-30) mmol/L Anion Gap 13 mmol/L BUN 12 (7-17) mg/dL Creatinine 0.52 (0.52-1.04) mg/dL Est GFR (CKD-EPI)AfAm >90 (>60 ml/min/1.73 sqM) Est GFR (CKD-EPI)NonAf >90 (>60 ml/min/1.73 sqM) Glucose 102 H (74-99) mg/dL Calcium 10.3 H (8.4-10.2) mg/dL Magnesium 1.2 L (1.6-2.3) mg/dL Total Bilirubin 0.2 (0.2-1.3) mg/dL AST 24 (14-36) U/L ALT 17 (4-34) U/L Alkaline Phosphatase 67 (38-126) U/L Troponin I (0.000-0.034) ng/mL Total Protein 7.9 (6.3-8.2) g/dL Albumin 4.6 (3.5-5.0) g/dL 03/14/21 Range/Units 13:28 WBC (3.8-10.6) k/uL RBC (3.80-5.40) m/uL Hgb (11.4-16.0) gm/dL Hct (34.0-46.0) % MCV (80.0-100.0) fL MCH (25.0-35.0) pg MCHC (31.0-37.0) g/dL RDW (11.5-15.5) % Plt Count (150-450) k/uL MPV Neutrophils % % Lymphocytes % % Monocytes % % Eosinophils % % Basophils % % Neutrophils # (1.3-7.7) k/uL Lymphocytes # (1.0-4.8) k/uL Monocytes # (0-1.0) k/uL Eosinophils # (0-0.7) k/uL Basophils # (0-0.2) k/uL PT (9.0-12.0) sec INR (<1.2) APTT (22.0-30.0) sec Sodium (137-145) mmol/L Potassium (3.5-5.1) mmol/L Chloride (98-107) mmol/L Carbon Dioxide (22-30) mmol/L Anion Gap mmol/L BUN (7-17) mg/dL Creatinine (0.52-1.04) mg/dL Est GFR (CKD-EPI)AfAm (>60 ml/min/1.73 sqM) Est GFR (CKD-EPI)NonAf (>60 ml/min/1.73 sqM) Glucose (74-99) mg/dL Calcium (8.4-10.2) mg/dL Magnesium (1.6-2.3) mg/dL Total Bilirubin (0.2-1.3) mg/dL AST (14-36) U/L ALT (4-34) U/L Alkaline Phosphatase (38-126) U/L Troponin I <0.012 (0.000-0.034) ng/mL Total Protein (6.3-8.2) g/dL Albumin (3.5-5.0) g/dL Disposition Clinical Impression: Cephalgia, Hypertensive urgency, Hyponatremia, Hypomagnesemia Disposition: ADMITTED IP TO THIS HOSP Referrals: Barb Young MD [Primary Care Provider] - 1-2 days Time of Disposition: 15:19
[2021-03-14] MEDS ORDERED: LORazepam 2 MG/ML INJ IV STA (13:43)
[2021-03-14 13:56] LABS: Basophils # (A) 0.1 k/uL (0-0.2); Basophils % (A) 1 %; Eosinophils # (A) 0.2 k/uL (0-0.7); Eosinophils % (A) 2 %; HCT 36.2 % (34.0-46.0); HGB 12.7 gm/dL (11.4-16.0); Lymphocytes # (A) 4.6 k/uL (1.0-4.8); Lymphocytes % (A) 33 %; MCH 31.8 pg (25.0-35.0); MCHC 35.1 g/dL (31.0-37.0); MCV 90.5 fL (80.0-100.0); Mean Platelet Volume 6.9; Monocytes # (A) 0.8 k/uL (0-1.0); Monocytes % (A) 6 %; Neutrophils # (A) 7.9 k/uL (1.3-7.7); Neutrophils % (A) 57 %; Platelet Count 580 k/uL (150-450); RDW 12.2 % (11.5-15.5); WBC 13.9 k/uL (3.8-10.6)
[2021-03-14 14:11] LABS: INR 0.9 (<1.2); Partial Thromboplastin Time 22.4 sec (22.0-30.0); Prothrombin Time 10.2 sec (9.0-12.0)
--- NOTE | 2021-03-14 14:14 | CT ---
EXAMINATION TYPE: CT brain wo con DATE OF EXAM: 03/14/2021 COMPARISON: None. HISTORY: Headache. Blurred vision. CT DLP: 1121.4 mGycm. Automated Exposure Control for Dose Reduction was Utilized. TECHNIQUE: CT scan of the head is performed without contrast. FINDINGS: There is no acute intracranial hemorrhage or midline shift identified. Mild ventricular a nd sulcal prominence. Bermudez-white matter differentiation is maintained . Suprasellar cistern is preser dayana. The visualized sinuses are clear. Globes are intact. Neither lens is well seen suggesting underl alireza cataracts. IMPRESSION: No acute intracranial hemorrhage or midline shift is seen.
[2021-03-14 14:21] LABS: ALT 17 U/L (4-34); AST 24 U/L (14-36); African American GFR (CKD) >90 (>60 ml/min/1.73 sqM); Albumin 4.6 g/dL (3.5-5.0); Alkaline Phosphatase 67 U/L (38-126); Anion Gap 13 mmol/L; Blood Urea Nitrogen 12 mg/dL (7-17); Calcium 10.3 mg/dL (8.4-10.2); Carbon Dioxide 26 mmol/L (22-30); Chloride 84 mmol/L (98-107); Glucose 102 mg/dL (74-99); Magnesium 1.2 mg/dL (1.6-2.3); Non-African American GFR(CKD) >90 (>60 ml/min/1.73 sqM); Potassium 4.1 mmol/L (3.5-5.1); Sodium 123 mmol/L (137-145); Total Bilirubin 0.2 mg/dL (0.2-1.3); Total Protein 7.9 g/dL (6.3-8.2)
--- NOTE | 2021-03-14 14:30 | XR ---
EXAMINATION TYPE: XR chest 2V DATE OF EXAM: 03/14/2021 COMPARISON: 10/01/2017 INDICATION: Chest pain TECHNIQUE: Frontal and lateral views of the chest are obtained. FINDINGS: The heart size is normal. The pulmonary vasculature is normal. The lungs are clear. IMPRESSION: 1. No acute pulmonary process.
[2021-03-14] MEDS ORDERED: SODIUM CHLORIDE 0.9% 500 ML 500 ML IV ONE (15:01)
[2021-03-14] MEDS ORDERED: ACETAMINOPHEN TAB 500 MG TAB PO STA (15:01)
[2021-03-14] MEDS ORDERED: KETOROLAC 15 MG/ML 1 ML VIAL IVP STA (15:04)
[2021-03-14] MEDS ORDERED: MORPHINE SULFATE 2 MG/ML SYRINGE IVP STA (15:12)
[2021-03-14] MEDS: SODIUM CHLORIDE 0.9% 1,000 ML IV SCH (15:30)
[2021-03-14] MEDS ORDERED: NITROGLYCERIN SL TABS 0.4 MG TAB SUBLINGUAL PRN (15:32)
[2021-03-14] MEDS: MAGNESIUM SULFATE-D5W PMX 1 GM in DEXTROSE/WATER 1 100ML.BAG IVPB SCH (15:37)
[2021-03-14] MEDS ORDERED: ONDANSETRON 4 MG/2 ML VIAL IVP STA (15:39)
[2021-03-14] MEDS ORDERED: HYDROmorphone 0.5 MG/0.5 ML SYRINGE IVP STA (16:23)
[2021-03-14] MEDS ORDERED: HYDROmorphone 0.5 MG/0.5 ML SYRINGE IVP ONE (20:10)
--- NOTE | 2021-03-14 21:39 | P.HPIM ---
History of Present Illness H&P Date: 03/14/21 Chief Complaint: Headache Patient is a 50-year-old female with a known history of hypertension, Diabetes Type 2, history of heart fluttering and was seen by EP, cataract in the left eye and previous history of smoking and also chronic neck pain and left shoulder pain presented to ER with complaints of headache and uncontrolled hypertension. Patient states that she was at work today and suddenly started having headache and vision became foggy. She checked her blood pressure and found that her SBP to 80 mmHg and she took her blood pressure pill and did not go down much. Patient took another pill and came to ER for evaluation. Patient states that she has been having issues with her neck pain and was recently started on prednisone tapering course which she is currently taking. Patient is also complaining of bilateral upper extremity pain radiating down the neck. Patient also states that she has been drinking plenty of water. On admission blood pressure was 191/108 pulse 85 respiration 18 pulse ox 97% on room air. Laboratory showed WBC 13.9 hemoglobin 12.7 and platelets 580 and neutrophils 7.9 Patient was given a dose of Dilaudid and morphine in the ER. CT head showed no acute intracranial hemorrhage or midline shift is seen. Chest x-ray showed no acute pulmonary process EKG showed normal sinus rhythm. Past Medical History Past Medical History: Diabetes Mellitus, Eye Disorder, Hypertension Additional Past Medical History / Comment(s): cataracts left eye History of Any Multi-Drug Resistant Organisms: None Reported Past Surgical History: Section, Tonsillectomy Additional Past Surgical History / Comment(s): CATARACT SURGERY- LEFT EYE WITH IMPLANT Past Anesthesia/Blood Transfusion Reactions: No Reported Reaction Past Psychological History: No Psychological Hx Reported Smoking Status: Former smoker Past Alcohol Use History: Occasional Additional Past Alcohol Use History / Comment(s): only occasionally smokes when she has a drink with friends Past Drug Use History: None Reported - Past Family History Father Family Medical History: Hypertension Additional Family Medical History / Comment(s): PUD Mother Family Medical History: Hypertension, Thyroid Disorder Additional Family Medical History / Comment(s): aneurysm Medications and Allergies Home Medications Medication Instructions Recorded Confirmed Type Hydrocodone/Acetaminophen [[place] 1 tab PO Q4HR PRN 03/14/21 03/14/21 History 7.5-325] Lisinopril-Hctz 20-12.5 mg 1 tab PO DAILY 03/14/21 03/14/21 History [Zestoretic 20-12.5] metFORMIN HCL 1,000 mg PO BID 03/14/21 03/14/21 History predniSONE [Deltasone] See Taper PO DAILY 03/14/21 03/14/21 History Allergies Allergy/AdvReac Type Severity Reaction Status Date / Time No Known Allergies Allergy Verified 03/14/21 13:26 Physical Exam Vitals: Vital Signs Temp Pulse Pulse Resp BP BP Pulse Ox 03/14/21 19:29 98.4 F 81 158/89 98 03/14/21 19:06 98 16 160/98 98 03/14/21 13:43 144/88 03/14/21 13:33 83 18 163/103 97 03/14/21 11:38 98.3 F 85 18 191/108 97 Intake and Output 03/14/21 03/14/21 03/14/21 06:59 14:59 22:59 Other: Weight 90.718 kg 90.718 kg PHYSICAL EXAMINATION: Patient is lying in the bed comfortably, no acute distress, awake alert and oriented.. HEENT: Normocephalic. Neck is supple. Pupils reactive. Nostrils clear. Oral cavity is moist. Neck reveals no JVD, carotid bruits, or thyromegaly. CHEST EXAMINATION: Trachea is central. Symmetrical expansion. Lung vang clear to auscultation and percussion. CARDIAC: Normal S1, S2 with no gallops. No murmurs ABDOMEN: Soft. Bowel sounds normal. No organomegaly. No abdominal bruits. Extremities: reveal no edema. No clubbing or cyanosis Neurologically awake, alert, oriented x3 with well-coordinated movements. No focal deficits noted Skin: No rash or skin lesions. Psychiatric: Cooperative. Nonsuicidal Musculoskeletal: No joint swelling or deformity. Normal range of motion. Results CBC & Chem 7: 03/14/21 13:28 03/14/21 13:28 Labs: Abnormal Lab Results - Last 24 Hours (Table) 03/14/21 03/14/21 Range/Units 13:28 13:28 WBC 13.9 H (3.8-10.6) k/uL Plt Count 580 H (150-450) k/uL Neutrophils # 7.9 H (1.3-7.7) k/uL Sodium 123 L (137-145) mmol/L Chloride 84 L (98-107) mmol/L Glucose 102 H (74-99) mg/dL Calcium 10.3 H (8.4-10.2) mg/dL Magnesium 1.2 L (1.6-2.3) mg/dL Thrombosis Risk Factor Assmnt - Choose All That Apply Each Factor Represents 1 point: Age 41-60 years Other Risk Factors: No Thrombosis Risk Factor Assessment Total Risk Factor Score: 1 Thrombosis Risk Factor Assessment Level: Low Risk Assessment and Plan Assessment: Accelerated essential hypertension Headache and blurry vision also Could be secondary to steroid use. Improved now. Hyponatremia likely hypoosmolar with diuretic use/hydrochlorothiazide and possibly increased free water intake. Mild leukocytosis. Rule out infection. Chest x-ray negative. Follow-up UA. Chronic neck pain and is currently on steroid course and is on follow-up with orthopedic surgery. Hypertension Diabetes type 2 [id number] DVT prophylaxis and GI prophylaxis Plan: Patient will be continued on pain management with Dilaudid and [place] as needed. Continue with IV hydration, normal saline at 75 cc/h and follow-up repeat CBC and BMP tomorrow. Continue with insulin sliding scale and hold Metformin. Continue to follow closely. Time with Patient: Greater than 30
[2021-03-14] MEDS: MELATONIN 5 MG TABLET PO SCH (22:30)
[2021-03-15] MEDS: FAMOTIDINE 20 MG TAB PO SCH ×3 (00:04→20:53)
[2021-03-15] MEDS: MAGNESIUM SULFATE-D5W PMX 1 GM in DEXTROSE/WATER 1 100ML.BAG IVPB SCH (00:12)
[2021-03-15] MEDS: HYDROcodone/APAP 7.5-325MG 1 EACH TAB PO PRN ×3 (01:23→15:23)
[2021-03-15] MEDS ORDERED: PANTOPRAZOLE 40 MG TABLET PO STA (02:17)
[2021-03-15] MEDS: HYDROmorphone 0.5 MG/0.5 ML SYRINGE IVP PRN ×3 (02:34→10:13)
[2021-03-15] MEDS: SODIUM CHLORIDE 0.9% 1,000 ML IV SCH ×2 (05:16→17:40)
[2021-03-15 07:36] LABS: Glucose,Whole Blood 181 mg/dL (75-99)
[2021-03-15] MEDS: INSULIN ASPART (NovoLOG) 100 UNIT/ML VIAL SQ SCH ×4 (07:44→20:53)
[2021-03-15] MEDS: ASPIRIN 325 MG TAB PO SCH (07:45)
[2021-03-15] MEDS: lisinopriL 20 MG TAB PO SCH (07:45)
[2021-03-15] MEDS: HEPARIN SODIUM,PORCINE/PF 5,000 UNIT/0.5 ML SYRINGE SQ SCH ×2 (07:45→20:53)
[2021-03-15] MEDS ORDERED: LISINOPRIL-HCTZ 20-12.5 MG 1 EACH TAB PO SCH (09:00)
[2021-03-15 09:42] LABS: Basophils # (A) 0.13 X 10*3/uL (0.00-0.10); Basophils % (A) 1.2 %; Eosinophils # (A) 0.46 X 10*3/uL (0.04-0.35); Eosinophils % (A) 4.3 %; HGB 11.4 g/dL (12.0-15.0); Lymphocytes # (A) 4.53 X 10*3/uL (0.90-5.00); Lymphocytes % (A) 42.5 %; MCH 30.5 pg (27.0-32.0); MCHC 33.5 g/dL (32.0-37.0); MCV 90.9 fL (80.0-97.0); Mean Platelet Volume 8.3 fL (9.5-12.2); Monocytes # (A) 0.72 X 10*3/uL (0.20-1.00); Monocytes % (A) 6.8 %; Neutrophils # (A) 4.69 X 10*3/uL (1.80-7.70); Neutrophils % (A) 44.1 %; Platelet Count 503 X 10*3/uL (140-440); RBC 3.74 X 10*6/uL (4.10-5.20); RDW 12.2 % (11.5-14.5); WBC 10.65 X 10*3/uL (4.50-10.00)
[2021-03-15 10:34] LABS: Appearance,Urine Clear (Clear); Bilirubin,Urine Negative (Negative); Blood,Urine Small (Negative); Color,Urine Colorless; Glucose,Urine (UA) Negative (Negative); Ketones,Urine Negative (Negative); Leukocyte Esterase,Urine Small (Negative); Nitrite,Urine Negative (Negative); PH, Urine 6.5 (5.0-8.0); Protein,Urine Negative (Negative); RBC,Urine <1 /hpf (0-5); Specific Gravity,Urine 1.004 (1.001-1.035); Urobilinogen,Urine <2.0 mg/dL (<2.0); WBC,Urine 4 /hpf (0-5)
[2021-03-15 10:50] LABS: African American GFR (CKD) 117.9 (60.0-200.0); Anion Gap 17.7 mmol/L (4.00-12.00); BUN/Creat Ratio 14.57 Ratio (12.00-20.00); Blood Urea Nitrogen 10.2 mg/dL (9.0-27.0); Calcium 9.1 mg/dL (8.7-10.3); Carbon Dioxide 19.3 mmol/L (21.6-31.8); Chol/HDL Ratio 2.99 Ratio; HDL Cholesterol 58.6 mg/dL (40.00-60.00); Non-African American GFR(CKD) 101.7 (60.0-200.0); VLDL Calculation 67.4 mg/dL (5.00-40.00)
[2021-03-15 11:25] LABS: Glucose,Whole Blood 103 mg/dL (75-99)
[2021-03-15] MEDS ORDERED: diphenhydrAMINE 50 MG/ML 1 ML VIAL IVP PRN (11:53)
[2021-03-15] MEDS ORDERED: PROCHLORPERAZINE INJ 10 MG/2 ML VIAL IVP PRN (11:53)
--- NOTE | 2021-03-15 15:43 | P.PN ---
Subjective Progress Note Date: 03/15/21 Patient is a 50-year-old female with a known history of hypertension, Diabetes Type 2, history of heart fluttering and was seen by EP, cataract in the left eye and previous history of smoking and also chronic neck pain and left shoulder pain presented to ER with complaints of headache and uncontrolled hypertension. Patient states that she was at work today and suddenly started having headache and vision became foggy. She checked her blood pressure and found that her SBP to 80 mmHg and she took her blood pressure pill and did not go down much. Patient took another pill and came to ER for evaluation. Patient states that she has been having issues with her neck pain and was recently started on prednisone tapering course which she is currently taking. Patient is also complaining of bilateral upper extremity pain radiating down the neck. Patient also states that she has been drinking plenty of water. On admission blood pressure was 191/108 pulse 85 respiration 18 pulse ox 97% on room air. Laboratory showed WBC 13.9 hemoglobin 12.7 and platelets 580 and neutrophils 7.9 Patient was given a dose of Dilaudid and morphine in the ER. CT head showed no acute intracranial hemorrhage or midline shift is seen. Chest x-ray showed no acute pulmonary process EKG showed normal sinus rhythm. 03/15/2021 Patient is seen and evaluated in follow-up this morning continues to have severe headache. Patient also having some mild shortness of breath that is intermittent although patient is currently on room air. Patient continues to request IV pain medications per nursing staff and discussed with her about attempting to avoid IV Dilaudid if possible. Will add Compazine and Benadryl for headache. Blood pressure improving and will continue current medication regimen. Sodium continues to be low although slightly improved at 125 and will continue gentle IV hydration and repeat labs in the morning. Labs: WBC is 10.65, hemoglobin is 11.4 and will platelets are 503, sodium is 125, potassium is 4.0, creatinine is 0.7, triglycerides 337, urinalysis was negative Review of systems: Constitutional: No reports of fatigue, fever, or chills Cardiovascular: No reports of chest pain or palpitations Respiratory: No reports of shortness of breath or cough GI: No reports of nausea, vomiting, or diarrhea : No reports of dysuria or retention Neurovascular: No reports of weakness or numbness All medications have been reviewed Active Medications Hydrocodone Bitart/Acetaminophen (Hydrocodone/Apap 7.5-325mg 1 Each Tab) 1 each PO Q4HR PRN PRN Reason: Pain Last Admin: 03/15/21 15:23 Dose: 1 each Documented by: Aspirin (Aspirin 325 Mg Tab) 325 mg PO DAILY [facility] Last Admin: 03/15/21 07:45 Dose: 325 mg Documented by: Diphenhydramine HCl (Diphenhydramine 50 Mg/Ml 1 Ml Vial) 25 mg IVP Q6HR PRN PRN Reason: Allergy Symptoms Famotidine (Famotidine 20 Mg Tab) 20 mg PO BID [facility] Last Admin: 03/15/21 07:45 Dose: Not Given Documented by: Heparin Sodium (Porcine) (Heparin Sodium,Porcine/Pf 5,000 Unit/0.5 Ml Syringe) 5,000 unit SQ Q12HR [facility] Last Admin: 03/15/21 07:45 Dose: 5,000 unit Documented by: Hydromorphone HCl (Hydromorphone 0.5 Mg/0.5 Ml Syringe) 0.5 mg IVP Q4HR PRN PRN Reason: Pain Last Admin: 03/15/21 10:13 Dose: 0.5 mg Documented by: Sodium Chloride (Saline 0.9%) 1,000 mls @ 75 mls/hr IV .[id number] [facility] Last Admin: 03/15/21 05:16 Dose: 75 mls/hr Documented by: Insulin Aspart (Insulin Aspart (Novolog) 100 Unit/Ml Vial) 0 unit SQ ACHS [facility]; Protocol Last Admin: 03/15/21 11:34 Dose: Not Given Documented by: Lisinopril (Lisinopril 20 Mg Tab) 20 mg PO DAILY [facility] Last Admin: 03/15/21 07:45 Dose: 20 mg Documented by: Melatonin (Melatonin 5 Mg Tablet) 5 mg PO HS [facility] Last Admin: 03/14/21 22:30 Dose: 5 mg Documented by: Nitroglycerin (Nitroglycerin Sl Tabs 0.4 Mg Tab) 0.4 mg SUBLINGUAL Q5M PRN PRN Reason: Chest Pain Prochlorperazine Edisylate (Prochlorperazine Inj 10 Mg/2 Ml Vial) 5 mg IVP Q6H PRN PRN Reason: Nausea And Vomiting Physical exam: Patient is lying in the bed comfortably, no acute distress, awake alert and oriented.. HEENT: Normocephalic. Neck is supple. Pupils reactive. Nostrils clear. Oral cav ity is moist. Neck reveals no JVD, carotid bruits, or thyromegaly. CHEST EXAMINATION: Trachea is central. Symmetrical expansion. Lung vang clear to auscultation and percussion. CARDIAC: Normal S1, S2 with no gallops. No murmurs ABDOMEN: Soft. Bowel sounds normal. No organomegaly. No abdominal bruits. Extremities: reveal no edema. No clubbing or cyanosis Neurologically awake, alert, oriented x3 with well-coordinated movements. No focal deficits noted Skin: No rash or skin lesions. Psychiatric: Cooperative. Nonsuicidal Musculoskeletal: No joint swelling or deformity. Normal range of motion. Assessment: Accelerated essential hypertension Headache and blurry vision also Could be secondary to steroid use. Improved now. Hyponatremia likely hypoosmolar with diuretic use/hydrochlorothiazide and possibly increased free water intake. Mild leukocytosis. Ruled out infection. Chest x-ray negative. Urinalysis negative, improving WBC is 10.65 Chronic neck pain and is currently on steroid course and is on follow-up with orthopedic surgery. Hypertension Diabetes type 2 [id number] DVT prophylaxis GI prophylaxis Plan: Patient will be continued on pain management with Dilaudid and [place] as needed. Continue with IV hydration, normal saline at 75 cc/h an will continue as sodium is 125. Continue with Accu-Cheks before meals and at bedtime and sliding scale. Patient continues with headache and discussed with her about attempting to avoid IV Dilaudid and will add Compazine and Benadryl for headache. Encouraged increased activity as tolerated and opening up the windows and sitting up out of the bed more often during the day. Will repeat a.m. labs and monitor sodium closely. Further recommendations to follow based on the clinical course of the patient. Objective - Vital Signs Vital signs: Vital Signs Temp 97.8 F 03/15/21 08:04 Pulse 71 03/15/21 08:04 Resp 17 03/15/21 08:04 BP 154/92 03/15/21 08:04 Pulse Ox 95 03/15/21 08:04 Intake & Output 03/14/21 03/15/21 03/15/21 18:59 06:59 18:59 Weight 90.718 kg Other: # Voids 3 1 # Bowel Movements 0 - Labs CBC & Chem 7: 03/15/21 05:32 03/15/21 05:32 Labs: Abnormal Lab Results - Last 24 Hours (Table) 03/14/21 03/14/21 03/15/21 Range/Units 13:28 13:28 07:35 WBC 13.9 H (3.8-10.6) k/uL Plt Count 580 H (150-450) k/uL Neutrophils # 7.9 H (1.3-7.7) k/uL Sodium 123 L (137-145) mmol/L Chloride 84 L (98-107) mmol/L Glucose 102 H (74-99) mg/dL POC Glucose (mg/dL) 181 H (75-99) mg/dL Calcium 10.3 H (8.4-10.2) mg/dL Magnesium 1.2 L (1.6-2.3) mg/dL
[2021-03-15 16:34] LABS: Glucose,Whole Blood 133 mg/dL (75-99)
[2021-03-15 20:48] LABS: Glucose,Whole Blood 178 mg/dL (75-99)
[2021-03-15] MEDS: MELATONIN 5 MG TABLET PO SCH (20:53)
[2021-03-16] MEDS: HYDROcodone/APAP 7.5-325MG 1 EACH TAB PO PRN (05:44)
[2021-03-16] MEDS: SODIUM CHLORIDE 0.9% 1,000 ML IV SCH (05:46)
[2021-03-16] MEDS: HYDROmorphone 0.5 MG/0.5 ML SYRINGE IVP PRN (07:18)
[2021-03-16 07:35] LABS: Glucose,Whole Blood 240 mg/dL (75-99)
[2021-03-16] MEDS: FAMOTIDINE 20 MG TAB PO SCH (07:44)
[2021-03-16] MEDS: HEPARIN SODIUM,PORCINE/PF 5,000 UNIT/0.5 ML SYRINGE SQ SCH (07:44)
[2021-03-16] MEDS: lisinopriL 20 MG TAB PO SCH (07:45)
[2021-03-16] MEDS: ASPIRIN 325 MG TAB PO SCH (07:45)
[2021-03-16] MEDS: INSULIN ASPART (NovoLOG) 100 UNIT/ML VIAL SQ SCH ×2 (07:45→11:48)
[2021-03-16 08:08] VITALS: RESP 16
[2021-03-16 08:34] LABS: Urine Barbiturate Negative (Negative); Urine Cocaine Negative (Negative); Urine Methadone Negative (Negative); Urine Opiates Positive (Negative); Urine Phencyclidine Negative (Negative)
[2021-03-16 09:37] LABS: Basophils # (A) 0.07 X 10*3/uL (0.00-0.10); Basophils % (A) 0.7 %; Eosinophils # (A) 0.37 X 10*3/uL (0.04-0.35); Eosinophils % (A) 3.8 %; HCT 35.2 % (37.2-46.3); HGB 11.7 g/dL (12.0-15.0); Lymphocytes # (A) 2.46 X 10*3/uL (0.90-5.00); Lymphocytes % (A) 25.3 %; MCH 31.4 pg (27.0-32.0); MCHC 33.2 g/dL (32.0-37.0); MCV 94.4 fL (80.0-97.0); Mean Platelet Volume 8.5 fL (9.5-12.2); Monocytes # (A) 0.53 X 10*3/uL (0.20-1.00); Monocytes % (A) 5.4 %; Neutrophils # (A) 6.24 X 10*3/uL (1.80-7.70); Neutrophils % (A) 64.1 %; Platelet Count 483 X 10*3/uL (140-440); RBC 3.73 X 10*6/uL (4.10-5.20); RDW 12.5 % (11.5-14.5); WBC 9.74 X 10*3/uL (4.50-10.00)
[2021-03-16 11:31] LABS: Glucose,Whole Blood 126 mg/dL (75-99)
[2021-03-16 14:03] LABS: African American GFR (CKD) 117.9 (60.0-200.0); Anion Gap 12.8 mmol/L (4.00-12.00); BUN/Creat Ratio 14.57 Ratio (12.00-20.00); Blood Urea Nitrogen 10.2 mg/dL (9.0-27.0); Calcium 9.2 mg/dL (8.7-10.3); Carbon Dioxide 24.2 mmol/L (21.6-31.8); Non-African American GFR(CKD) 101.7 (60.0-200.0); Potassium 4.5 mmol/L (3.5-5.5)
[2021-03-16 14:25] VITALS: BP 115/63; PULSE 69; TEMP 97.9
[2021-03-16] MEDS ORDERED: MAGNESIUM OXIDE 400 MG TAB PO STA (14:36)
== END 2021-03-16 15:54 | disposition home or self-care (01) | DRG 641 ==
LOC: EC 11:29 → 4SSUR 15:32
PROVIDERS: ADMIT Internal Medicine; ATTEND Internal Medicine
DX: E87.1 Hypo-osmolality and hyponatremia (principal); D72.829 Elevated white blood cell count, unspecified; E11.9 Type 2 diabetes mellitus without complications; E83.42 Hypomagnesemia; G89.29 Other chronic pain; I10 Essential (primary) hypertension; I16.0 Hypertensive urgency; Z79.4 Long term (current) use of insulin; Z79.84 Long term (current) use of oral hypoglycemic drugs; Z82.49 Family history of ischemic heart disease and other diseases of the circulatory system; Z87.891 Personal history of nicotine dependence; M54.2 Cervicalgia; M54.9 Dorsalgia, unspecified; R51.9 Headache, unspecified
CPT/HCPCS: 36415; 70450; 71046; 80048; 80053; 80061; 80306; 81001; 83735; 84484; 85025; 85610; 85730; 87635; 93005; 96365; 96366; 96375; 99285

== ENCOUNTER 2021-03-18 14:16 | Emergency (ER) | payer OTHER ==
[2021-03-18] MEDS ORDERED: MORPHINE SULFATE 4 MG/ML SYRINGE IVP STA (15:01)
--- NOTE | 2021-03-18 15:07 | ED ---
General Adult HPI - General Chief complaint: Recheck/Abnormal Lab/Rx Stated complaint: HBP Time Seen by Provider: 03/18/21 14:44 Source: patient Mode of arrival: wheelchair Limitations: no limitations - History of Present Illness Initial comments: Dictation was produced using [employer] dictation software. please excuse any grammatical, word or spelling errors. Chief Complaint: 50-year-old katey presents emergency department for multiple complaints History of Present Illness: 50-year-old feel she passed past medical history of diabetes, cataracts and pain syndrome. States that today she is noticed that her blood pressure was elevated. She also complains of palpitations. She has been having visual loss for the last several days. 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 Patient states that 30 minutes prior to arrival she began having a severe headache. States that her headache is 10 out of 10 pain. Denies any numbness distally paresthesias to the arms or legs. Denies any chest pain or shortness of breath. States that she takes lisinopril for her blood pressure. She does have history of anxiety. She states that she's been compliant with her blood pressure medications. She was admitted to the hospital earlier this week for similar issue. She was discharged 2 days ago. She was prescribed lisinopril during his last admission. The ROS documented in this emergency department record has been reviewed and confirmed by me. Those systems with pertinent positive or negative responses have been documented in the HPI. All other systems are other negative and/or noncontributory. PHYSICAL EXAM: General Impression: Alert and oriented x3, not in acute distress HEENT: Normocephalic atraumatic, extra-ocular movements intact, pupils equal and reactive to light bilaterally, mucous membranes moist. Cardiovascular: Heart regular rate and rhythm Chest: Able to complete full sentences, no retractions, no tachypnea Abdomen: abdomen soft, non-tender, non-distended, no organomegaly Musculoskeletal: Pulses present and equal in all extremities, no peripheral edema Motor: no focal deficits noted Neurological: CN II-XII grossly intact, no focal motor or sensory deficits noted Skin: Intact with no visualized rashes Psych: Normal affect and mood ED course: 50yo well-appearing female presents to the emergency department for elevated blood pressure, palpitations. Vital signs upon arrival shows blood pressure 186/97, rest of vital signs within acceptable limits. laboratory evaluation obtained. CBC, metabolic panel is unremarkable. Computed tomography scan of brain is negative. Repeat blood pressures improved. Patient relented bedside feels little bit better. Patient is agreeable for discharge. She has outpatient follow-up with her primary care doctor. EKG interpretation: Ventricular rate 79, normal sinus rhythm, OK interval 132, QRS 90, QTc 458. No OK prolongation, no QTC prolongation, no ST or T-wave changes noted. EKG compared to 03/14/2021 showing no changes. Overall, this EKG is unremarkable - Related Data Home Medications Medication Instructions Recorded Confirmed RX: Hydrocodone/Acetaminophen 1 tab PO Q4HR PRN 03/14/21 03/18/21 [Hiko 7.5-325] RX: metFORMIN HCL 1,000 mg PO BID 03/14/21 03/18/21 Ibuprofen [Motrin Ib] 800 mg PO Q8H PRN 03/18/21 03/18/21 Multivitamins, Thera [Multivitamin 1 tab PO DAILY 03/18/21 03/18/21 (formulary)] Previous Rx's Medication Instructions Recorded RX: lisinopriL [Zestril] 20 mg PO DAILY 30 Days #30 tab 03/16/21 Allergies Allergy/AdvReac Type Severity Reaction Status Date / Time No Known Allergies Allergy Verified 03/18/21 15:10 Review of Systems ROS Statement: Those systems with pertinent positive or pertinent negative responses have been documented in the HPI. ROS Other: All systems not noted in ROS Statement are negative. Past Medical History Past Medical History: Diabetes Mellitus, Eye Disorder, Hypertension Additional Past Medical History / Comment(s): cataracts left eye History of Any Multi-Drug Resistant Organisms: None Reported Past Surgical History: Section, Tonsillectomy Additional Past Surgical History / Comment(s): CATARACT SURGERY- LEFT EYE WITH IMPLANT Past Anesthesia/Blood Transfusion Reactions: No Reported Reaction Past Psychological History: No Psychological Hx Reported Smoking Status: Former smoker Past Alcohol Use History: Occasional Past Drug Use History: None Reported - Past Family History Father Family Medical History: Hypertension Additional Family Medical History / Comment(s): PUD Mother Family Medical History: Hypertension, Thyroid Disorder Additional Family Medical History / Comment(s): aneurysm General Exam Limitations: no limitations Course Vital Signs 11/06/21 11/06/21 14:19 14:40 Temperature 98.2 F Pulse Rate 78 Pulse Rate [ 74 Sitting Pulse Oximetery] Respiratory 20 Rate Blood Pressure 186/97 O2 Sat by Pulse 98 Oximetry Medical Decision Making - Lab Data Result diagrams: 03/18/21 15:03 03/18/21 15:03 Lab Results 03/18/21 03/18/21 03/18/21 Range/Units 15:03 15:03 15:03 WBC 10.7 H (3.8-10.6) k/uL RBC 3.88 (3.80-5.40) m/uL Hgb 12.2 (11.4-16.0) gm/dL Hct 35.6 (34.0-46.0) % MCV 91.7 (80.0-100.0) fL MCH 31.4 (25.0-35.0) pg MCHC 34.3 (31.0-37.0) g/dL RDW 13.1 (11.5-15.5) % Plt Count 478 H (150-450) k/uL MPV 6.6 Neutrophils % 64 % Lymphocytes % 24 % Monocytes % 5 % Eosinophils % 4 % Basophils % 1 % Neutrophils # 6.8 (1.3-7.7) k/uL Lymphocytes # 2.6 (1.0-4.8) k/uL Monocytes # 0.5 (0-1.0) k/uL Eosinophils # 0.5 (0-0.7) k/uL Basophils # 0.1 (0-0.2) k/uL Sodium 136 L (137-145) mmol/L Potassium 4.4 (3.5-5.1) mmol/L Chloride 103 (98-107) mmol/L Carbon Dioxide 23 (22-30) mmol/L Anion Gap 10 mmol/L BUN 14 (7-17) mg/dL Creatinine 0.54 (0.52-1.04) mg/dL Est GFR (CKD-EPI)AfAm >90 (>60 ml/min/1.73 sqM) Est GFR (CKD-EPI)NonAf >90 (>60 ml/min/1.73 sqM) Glucose 109 H (74-99) mg/dL Calcium 9.4 (8.4-10.2) mg/dL Magnesium 1.5 L (1.6-2.3) mg/dL Total Bilirubin 0.2 (0.2-1.3) mg/dL AST 33 (14-36) U/L ALT 22 (4-34) U/L Alkaline Phosphatase 65 (38-126) U/L Troponin I <0.012 (0.000-0.034) ng/mL Total Protein 6.9 (6.3-8.2) g/dL Albumin 4.1 (3.5-5.0) g/dL TSH 0.667 (0.465-4.680) mIU/L Disposition Clinical Impression: Headache Disposition: HOME SELF-CARE Condition: Fair Instructions (If sedation given, give patient instructions): Acute Headache (DC), Hypertension (ED) Is patient prescribed a controlled substance at d/c from ED?: No Referrals: Barb Young MD [Primary Care Provider] - 1-2 days
[2021-03-18 15:23] LABS: Basophils # (A) 0.1 k/uL (0-0.2); Basophils % (A) 1 %; Eosinophils # (A) 0.5 k/uL (0-0.7); Eosinophils % (A) 4 %; HCT 35.6 % (34.0-46.0); HGB 12.2 gm/dL (11.4-16.0); Lymphocytes # (A) 2.6 k/uL (1.0-4.8); Lymphocytes % (A) 24 %; MCH 31.4 pg (25.0-35.0); MCHC 34.3 g/dL (31.0-37.0); MCV 91.7 fL (80.0-100.0); Mean Platelet Volume 6.6; Monocytes # (A) 0.5 k/uL (0-1.0); Monocytes % (A) 5 %; Neutrophils # (A) 6.8 k/uL (1.3-7.7); Neutrophils % (A) 64 %; Platelet Count 478 k/uL (150-450); RBC 3.88 m/uL (3.80-5.40); RDW 13.1 % (11.5-15.5); WBC 10.7 k/uL (3.8-10.6)
[2021-03-18 15:25] LABS: ALT 22 U/L (4-34); AST 33 U/L (14-36); African American GFR (CKD) >90 (>60 ml/min/1.73 sqM); Albumin 4.1 g/dL (3.5-5.0); Alkaline Phosphatase 65 U/L (38-126); Anion Gap 10 mmol/L; Blood Urea Nitrogen 14 mg/dL (7-17); Calcium 9.4 mg/dL (8.4-10.2); Carbon Dioxide 23 mmol/L (22-30); Chloride 103 mmol/L (98-107); Glucose 109 mg/dL (74-99); Magnesium 1.5 mg/dL (1.6-2.3); Non-African American GFR(CKD) >90 (>60 ml/min/1.73 sqM); Potassium 4.4 mmol/L (3.5-5.1); Sodium 136 mmol/L (137-145); Total Bilirubin 0.2 mg/dL (0.2-1.3); Total Protein 6.9 g/dL (6.3-8.2)
--- NOTE | 2021-03-18 15:43 | CT ---
EXAMINATION TYPE: CT brain wo con DATE OF EXAM: 03/18/2021 COMPARISON: 03/14/2021 HISTORY: headache, high BP CT DLP: 1118.4 mGycm Automated exposure control for dose reduction was used. Images of the brain obtained without contrast. Ventricles have normal size. There is no mass effect nor midline shift. There is no sign of intracran ial hemorrhage. Calvarium is intact. There is incomplete aeration of the mastoid sinuses. This could relate to some mastoiditis. IMPRESSION: Negative unenhanced head CT scan. No change.
[2021-03-18] MEDS ORDERED: MAGNESIUM OXIDE 400 MG TAB PO STA (16:19)
[2021-03-18] MEDS ORDERED: HYDROmorphone 0.5 MG/0.5 ML SYRINGE IVP STA (16:28)
[2021-03-18 16:58] VITALS: BP 150/91; PULSE 75; RESP 18; TEMP 97.9
== END 2021-03-18 16:58 | disposition home or self-care (01) ==
LOC: EC 14:16
DX: R51.9 Headache, unspecified (principal); R00.2 Palpitations; E11.36 Type 2 diabetes mellitus with diabetic cataract; I10 Essential (primary) hypertension; Z79.84 Long term (current) use of oral hypoglycemic drugs; Z87.891 Personal history of nicotine dependence
CPT/HCPCS: 36415; 80053; 83735; 84443; 84484; 85025; 70450; 99284; 96374; 96375; J2270; J1170

== ENCOUNTER 2022-08-17 14:01 | Emergency (ER) | payer BC ==
[2022-08-17 14:12] VITALS: TEMP 97
[2022-08-17] MEDS ORDERED: LORazepam 2 MG/ML INJ IM STA (14:50)
[2022-08-17] MEDS ORDERED: KETOROLAC 15 MG/ML 1 ML VIAL IM STA (16:16)
--- NOTE | 2022-08-17 16:19 | ED ---
Anxiety HPI - General Chief Complaint: Anxiety Stated Complaint: panic attack Time Seen by Provider: 08/17/22 14:23 Source: patient Mode of arrival: ambulatory - History of Present Illness Initial Comments: Patient is a 51-year-old female who presents to the emergency department for panic attack. Patient does not have history but states that she has been extremely anxious lately while taking care of her father who has dementia. Her father was recently kicked out of the long term due to his behavior with dementia. He was put in a psychiatric rowe and after seeing her father in restraints patient became very upset and had a panic attack. Patient could not stop crying and had generalized pain and extremity tingling. No chest pain or shortness of breath. Patient has history of hypertension otherwise denies cardiac disease. She is not suicidal or homicidal. She denies alcohol and drug use. - Related Data Home Medications: Home Medications Medication Instructions Recorded Confirmed Hydrocodone/Acetaminophen [[place] 1 tab PO Q4HR PRN 03/14/21 03/18/21 7.5-325] metFORMIN HCL 1,000 mg PO BID 03/14/21 03/18/21 Ibuprofen [Motrin Ib] 800 mg PO Q8H PRN 03/18/21 03/18/21 Multivitamins, Thera [Multivitamin 1 tab PO DAILY 03/18/21 03/18/21 (formulary)] Previous Rx's Medication Instructions Recorded lisinopriL [Zestril] 20 mg PO DAILY 30 Days #30 tab 03/16/21 Ibuprofen [Motrin] 800 mg PO Q8HR PRN #30 tab 08/17/22 hydrOXYzine HCL 25 mg PO BID PRN #14 tab 08/17/22 Allergies/Adverse Reactions: Allergies Allergy/AdvReac Type Severity Reaction Status Date / Time No Known Allergies Allergy Verified 03/18/21 15:10 Review of Systems ROS Statement: Those systems with pertinent positive or pertinent negative responses have been documented in the HPI. ROS Other: All systems not noted in ROS Statement are negative. Past Medical History Past Medical History: Diabetes Mellitus, Eye Disorder, Hypertension Additional Past Medical History / Comment(s): cataracts left eye History of Any Multi-Drug Resistant Organisms: None Reported Past Surgical History: Section, Tonsillectomy Additional Past Surgical History / Comment(s): CATARACT SURGERY- LEFT EYE WITH IMPLANT Past Anesthesia/Blood Transfusion Reactions: No Reported Reaction Past Psychological History: No Psychological Hx Reported Smoking Status: Former smoker Past Alcohol Use History: Occasional Past Drug Use History: None Reported - Past Family History Father Family Medical History: Hypertension Additional Family Medical History / Comment(s): PUD Mother Family Medical History: Hypertension, Thyroid Disorder Additional Family Medical History / Comment(s): aneurysm General Exam Limitations: no limitations General appearance: alert Head exam: Present: atraumatic, normocephalic, normal inspection Respiratory exam: Present: normal lung sounds bilaterally. Absent: respiratory distress, wheezes, rales, rhonchi, stridor Cardiovascular Exam: Present: regular rate, normal rhythm, normal heart sounds. Absent: systolic murmur, diastolic murmur, rubs, gallop, clicks Neurological exam: Present: alert, oriented X3, CN II-XII intact Psychiatric exam: Present: normal affect, anxious. Absent: normal mood Skin exam: Present: warm, dry, intact, normal color. Absent: rash Course Vital Signs 08/17/22 08/17/22 14:07 16:12 Temperature 97.0 F L Pulse Rate 100 95 Respiratory 20 18 Rate Blood Pressure 178/108 156/84 O2 Sat by Pulse 100 96 Oximetry Medical Decision Making - Medical Decision Making Was pt. sent in by a medical professional or institution (JESSICA Gutierrez, CORRECTION OFFICER SUPERVISOR, urgent care, hospital, or long term...) When possible be specific @ -[No] Did you speak to anyone other than the patient for history (EMS, parent, family, police, friend...)? What history was obtained from this source @ -[No] Did you review nursing and triage notes (agree or disagree)? Why? @ -[I reviewed and agree with nursing and triage notes] Were old charts reviewed (outside hosp., previous admission, EMS record, old EKG, old radiological studies, urgent care reports/EKG's, long term records)? Report findings @ -[No old charts were reviewed] Differential Diagnosis (chest pain, altered mental status, abdominal pain women, abdominal pain men, vaginal bleeding, weakness, fever, dyspnea, syncope, headache, dizziness, GI bleed, back pain, seizure, CVA, palpatations, mental health)? @ -Differential Mental Health Depression, anxiety, bipolar, psychosis, schizophrenia, borderline personality, situational depression, adjustment disorder, behavioral disorder, brain tumor, malingering, substance abuse, encephalopathy, medication reaction, dementia, hypothyroidism, degenerative neurologic disorder, lupus.... This is not meant to be all-inclusive list EKG interpreted by me (3pts min.). @ -[As above] X-rays interpreted by me (1pt min.). @ -[None done] CT interpreted by me (1pt min.). @ -[None done] U/S interpreted by me (1pt. min.). @ -[None done] What testing was considered but not performed or refused? (CT, X-rays, U/S, labs)? Why? @ -Considered EKG and chest x-ray however patient has not had chest pain or shortness of breath. Clinical presentation consistent with panic attack. What meds were considered but not given or refused? Why? @ -[None] Did you discuss the management of the patient with other professionals (professionals i.e. , PA, CORRECTION OFFICER SUPERVISOR, lab, RT, psych nurse, clinical social work aide, electrical controls designer, teacher, accounts officer, nurse case management)? Give summary @ -[No] Was smoking cessation discussed for >3mins.? @ -[No] Was critical care preformed (if so, how long)? @ -[No] Were there social determinants of health that impacted care today? How? (Homelessness, low income, unemployed, alcoholism, drug addiction, transportat ion, low edu. Level, literacy, decrease access to med. care, penitentiary, rehab)? @ -[No] Was there de-escalation of care discussed even if they declined (Discuss DNR or withdrawal of care, Hospice)? DNR status @ -[No] What co-morbidities impacted this encounter? (DM, HTN, Smoking, COPD, CAD, Cancer, CVA, ARF, Chemo, Hep., AIDS, mental health diagnosis, sleep apnea, morbid obesity)? @ -[None] Was patient admitted / discharged? Hospital course, mention meds given and route, prescriptions, significant lab abnormalities, going to OR and other pertinent info. @ -Patient presenting with panic attack. Patient is very upset during my evaluation crying. She is not having any chest pain or shortness of breath. Patient given IM Ativan with improvement of symptoms. We talked about her situation with her father in detail with discussed the importance of stress reducing activities. I did recommend therapy. Patient will be discharged with hydroxyzine she'll use as needed for severe anxiety and panic attack. Undiagnosed new problem with uncertain prognosis? @ -[No] Drug Therapy requiring intensive monitoring for toxicity (Heparin, Nitro, Insulin, Cardizem)? @ -[No] Were any procedures done? @ -[No] Diagnosis/symptom? @ -panic attack Acute, or Chronic, or Acute on Chronic? @ -acute Uncomplicated (without systemic symptoms) or Complicated (systemic symptoms)? @ -uncomplicated Side effects of treatment? @ -[No] Exacerbation, Progression, or Severe Exacerbation? @ -[No] Poses a threat to life or bodily function? How? (Chest pain, [place], [place], pneumonia, PE, COPD, DKA, ARF, appy, cholecystitis, CVA, Diverticulitis, Homicidal, Suicidal, threat to staff... and all critical care pts) @ -[No] Dr. Quispe is my attending. Disposition Clinical Impression: Panic attack, Acute anxiety, Hyperventilation Disposition: HOME SELF-CARE Condition: Good Instructions (If sedation given, give patient instructions): Generalized Anxiety Disorder (ED), Anxiety (ED), Panic Attack (ED) Additional Instructions: Take medication as directed. Take hydroxyzine for severe anxiety or if you have a panic attack. Do not drink alcohol or operate machinery while taking hydroxyzine as a can cause drowsiness. Follow-up with [facility] care provider in one to 2 days. I do think you would benefit from talking to a therapist. Return to the emergency department if you experience new, concerning, or worsening symptoms. Prescriptions: hydrOXYzine HCL 25 mg PO BID PRN #14 tab PRN Reason: Anxiety Ibuprofen [Motrin] 800 mg PO Q8HR PRN #30 tab PRN Reason: Pain Is patient prescribed a controlled substance at d/c from ED?: No Referrals: Arnoldo Sanchez MD [Primary Care Provider] - 1-2 days
[2022-08-17 16:43] VITALS: BP 156/84; PULSE 95; RESP 18
== END 2022-08-17 16:44 | disposition home or self-care (01) ==
LOC: SUPCPDRO 14:01 → EC 14:01
DX: F41.0 Panic disorder [episodic paroxysmal anxiety] (principal); F41.9 Anxiety disorder, unspecified; R06.4 Hyperventilation; I10 Essential (primary) hypertension; E11.36 Type 2 diabetes mellitus with diabetic cataract; H26.9 Unspecified cataract; Z79.84 Long term (current) use of oral hypoglycemic drugs; Z90.89 Acquired absence of other organs; Z87.891 Personal history of nicotine dependence
CPT/HCPCS: 99284; 96372; J2060; J1885

== ENCOUNTER 2024-03-26 11:58 | Emergency (ER) | payer BC ==
[2024-03-26 12:28] VITALS: BP 128/82; TEMP 98.1
--- NOTE | 2024-03-26 12:55 | ED ---
Head Injury HPI - General Chief complaint: Head Injury Stated complaint: Fall-Nausea,Dizziness Time Seen by Provider: 03/26/24 12:15 Source: patient, RN notes reviewed Mode of arrival: ambulatory Limitations: no limitations - History of Present Illness Initial comments: This is a 53-year-old female with history of DM presenting for worsening headache following a fall 7 days ago. Patient states she suffered a trip and fall outdoors into the grill of a car. Patient denies loss of consciousness headache gone to [facility] following the injury with a normal CT scan of her head at that time and was diagnosed with "bruising" patient en dorses ongoing frontal throbbing/pressure head pain (7 out of 10). Also endorses bilateral neck pain, nausea and dizziness that worsens with positional change. Patient endorses decreased appetite and has recently noticed bruising underneath both of her eyes. Patient states symptoms worsened after performing some heavy lifting at work today. Patient denies use of blood thinners or antiplatelet medication. Denies fever, chills, chest pain, dyspnea, abdominal pain, vomiting, diarrhea. MD Complaint: head injury, head pain, fall Onset/Timin -: days(s) Mechanism of Injury: mechanical fall Location: frontal Loss of Consciousness: no Previous Trauma to this Area: No Place: outdoors Radiation: neck Severity scale (1-10): 7 Quality: other (Throbbing/pressure) Consistency: constant Other Injuries: neck Associated Symptoms: nausea, neck pain, other (Dizziness) - Related Data Home Medications Medication Instructions Recorded Confirmed Hydrocodone/Acetaminophen [[place] 1 tab PO Q4HR PRN 03/14/21 03/18/21 7.5-325] metFORMIN HCL 1,000 mg PO BID 03/14/21 03/18/21 Ibuprofen [Motrin Ib] 800 mg PO Q8H PRN 03/18/21 03/18/21 Multivitamins, Thera [Multivitamin 1 tab PO DAILY 03/18/21 03/18/21 (formulary)] Previous Rx's Medication Instructions Recorded lisinopriL [Zestril] 20 mg PO DAILY 30 Days #30 tab 03/16/21 Ibuprofen [Motrin] 800 mg PO Q8HR PRN #30 tab 08/17/22 hydrOXYzine HCL 25 mg PO BID PRN #14 tab 08/17/22 Allergies/Adverse reactions: Allergies Allergy/AdvReac Type Severity Reaction Status Date / Time No Known Allergies Allergy Verified 03/26/24 12:15 Review of Systems ROS Statement: Those systems with pertinent positive or pertinent negative responses have been documented in the HPI. ROS Other: All systems not noted in ROS Statement are negative. Past Medical History Past Medical History: Diabetes Mellitus, Eye Disorder, Hypertension Additional Past Medical History / Comment(s): cataracts left eye History of Any Multi-Drug Resistant Organisms: None Reported Past Surgical History: Section, Tonsillectomy Additional Past Surgical History / Comment(s): CATARACT SURGERY- LEFT EYE WITH IMPLANT Past Anesthesia/Blood Transfusion Reactions: No Reported Reaction Past Psychological History: No Psychological Hx Reported Smoking Status: Former smoker Past Alcohol Use History: Occasional Past Drug Use History: Marijuana - Past Family History Father Family Medical History: Hypertension Additional Family Medical History / Comment(s): PUD Mother Family Medical History: Hypertension, Thyroid Disorder Additional Family Medical History / Comment(s): aneurysm General Exam Limitations: no limitations General appearance: alert, in no apparent distress Head exam: Present: normocephalic, other (Positive ecchymosis of mid forehead with mild/tender centralized hematoma with bilateral suborbital ecchymosis. Positive bilateral maxillary tenderness without crepitus or deformity) Eye exam: Present: normal appearance, PERRL, EOMI. Absent: scleral icterus, conjunctival injection, periorbital swelling Pupils: Present: normal accommodation ENT exam: Present: normal exam, mucous membranes moist Neck exam: Present: tenderness (Positive tenderness at C7 without obvious crepitus or step-off. Positive bilateral trapezius muscle spasm tenderness.). Absent: meningismus, lymphadenopathy Respiratory exam: Present: normal lung sounds bilaterally. Absent: respiratory distress, wheezes, rales, rhonchi, stridor Cardiovascular Exam: Present: regular rate, normal rhythm, normal heart sounds. Absent: systolic murmur, diastolic murmur, rubs, gallop, clicks GI/Abdominal exam: Present: soft, normal bowel sounds. Absent: distended, tenderness, guarding, rebound, rigid Extremities exam: Present: normal inspection, full ROM, normal capillary refill. Absent: tenderness, pedal edema, joint swelling, calf tenderness Back exam: Present: vertebral tenderness (T12/L1 tenderness without crepitus or step-off) Neurological exam: Present: alert, oriented X3, CN II-XII intact Psychiatric exam: Present: normal affect, normal mood Skin exam: Present: warm, dry, intact, normal color. Absent: rash Course Vital Signs 03/26/24 03/26/24 12:15 16:47 Temperature 98.1 F Pulse Rate 65 84 Respiratory 18 16 Rate Blood Pressure 128/82 128/82 O2 Sat by Pulse 96 97 Oximetry Medical Decision Making - Medical Decision Making Was pt. sent in by a medical professional or institution (, PA, PROMOTIONAL MODEL, urgent care, hospital, or penitentiary...) When possible be specific @ -[No] Did you speak to anyone other than the patient for history (EMS, parent, family, police, friend...)? What history was obtained from this source @ -[No] Did you review nursing and triage notes (agree or disagree)? Why? @ -[I reviewed and agree with nursing and triage notes] Were old charts reviewed (outside hosp., previous admission, EMS record, old EKG, old radiological studies, urgent care reports/EKG's, penitentiary records)? Report findings @ -[No old charts were reviewed] Differential Diagnosis (chest pain, altered mental status, abdominal pain women, abdominal pain men, vaginal bleeding, weakness, fever, dyspnea, syncope, headache, dizziness, GI bleed, back pain, seizure, CVA, palpatations, mental health, musculoskeletal)? @ -Differential Headache: Migraine, tension, cluster, carbon monoxide, central venous thrombosis, pension karma temporal arteritis, acute closure glaucoma, intercranial hemorrhage, mastoiditis, sinusitis, head injury, this is not meant to be an all-inclusive list. Differential Dizziness: Benign paroxysmal positional Vertigo, Meniere's disease, otitis media, acoustic neuroma, vertebrobasilar insufficiency, cerebellar stroke, encephalitis, hypovolemic, arrhythmia, coronary artery syndrome, anemia, this is not meant to be an all-inclusive list EKG interpreted by me (3pts min.). @ -Not done X-rays interpreted by me (1pt min.). @ -Lumbosacral spine x-ray revealed no obvious fracture or dislocation CT interpreted by me (1pt min.). @ -Head neck CT revealed no intracranial hemorrhage, cervical spine fracture or facial fracture U/S interpreted by me (1pt. min.). @ -[None done] What testing was considered but not performed or refused? (CT, X-rays, U/S, labs)? Why? @ -[None] What meds were considered but not given or refused? Why? @ -[None] Did you discuss the management of the patient with other professionals (professionals i.e. , PA, PROMOTIONAL MODEL, lab, RT, psych nurse, social media project manager, extrusion die template maker, teacher, military police officer, caseworker intake)? Give summary @ -[No] Was smoking cessation discussed for >3mins.? @ -[No] Was critical care preformed (if so, how long)? @ -[No] Were there social determinants of health that impacted care today? How? (Homelessness, low income, unemployed, alcoholism, drug addiction, transportat ion, low edu. Level, literacy, decrease access to med. care, care home, rehab)? @ -[No] Was there de-escalation of care discussed even if they declined (Discuss DNR or withdrawal of care, Hospice)? DNR status @ -[No] What co-morbidities impacted this encounter? (DM, HTN, Smoking, COPD, CAD, Cancer, CVA, ARF, Chemo, Hep., AIDS, mental health diagnosis, sleep apnea, morbid obesity)? @ -DM Was patient admitted / discharged? Hospital course, mention meds given and route, prescriptions, significant lab abnormalities, going to OR and other pertinent info. @ -Discharge. CT and radiograph imaging revealed no concerning findings. Lab results were also unremarkable. Patient given IV Toradol and Zofran with some relief of nausea but ongoing pain. Additional round of IV Toradol and Zofran given with good pain/nausea relief. Patient provided cold compress and T3 and Zofran starter packs. Work note provided upon request Undiagnosed new problem with uncertain prognosis? @ -[No] Drug Therapy requiring intensive monitoring for toxicity (Heparin, Nitro, Insulin, Cardizem)? @ -[No] Were any procedures done? @ -[No] Diagnosis/symptom? @ -Mild concussion without loss of consciousness, facial hematoma with dependent ecchymosis Acute, or Chronic, or Acute on Chronic? @ -Acute Uncomplicated (without systemic symptoms) or Complicated (systemic symptoms)? @ -Complicated Side effects of treatment? @ -[No] Exacerbation, Progression, or Severe Exacerbation? @ -[No] Poses a threat to life or bodily function? How? (Chest pain, [place], [place], pneumonia, PE, COPD, DKA, ARF, appy, cholecystitis, CVA, Diverticulitis, Homicidal, Suicidal, threat to staff... and all critical care pts) @ -[No] - Lab Data Result diagrams: 03/26/24 13:12 03/26/24 13:12 Lab Results 03/26/24 03/26/24 03/26/24 Range/Units 13:12 13:12 13:12 WBC 11.1 H (3.8-10.6) k/uL RBC 5.24 (3.80-5.40) m/uL Hgb 15.4 (11.4-16.0) gm/dL Hct 45.7 (34.0-46.0) % MCV 87.3 (80.0-100.0) fL MCH 29.5 (25.0-35.0) pg MCHC 33.8 (31.0-37.0) g/dL RDW 13.3 (11.5-15.5) % Plt Count 322 (150-450) k/uL MPV 7.3 Neutrophils % 61 % Lymphocytes % 26 % Monocytes % 4 % Eosinophils % 7 % Basophils % 1 % Neutrophils # 6.7 (1.3-7.7) k/uL Lymphocytes # 2.9 (1.0-4.8) k/uL Monocytes # 0.5 (0-1.0) k/uL Eosinophils # 0.8 H (0-0.7) k/uL Basophils # 0.1 (0-0.2) k/uL PT 10.6 (10.0-12.5) sec INR 1.0 (<1.2) APTT 23.7 (22.0-30.0) sec Sodium 138 (137-145) mmol/L Potassium 4.0 (3.5-5.1) mmol/L Chloride 107 (98-107) mmol/L Carbon Dioxide 22 (22-30) mmol/L Anion Gap 9 mmol/L BUN 12 (7-17) mg/dL Creatinine 0.71 (0.52-1.04) mg/dL Est GFR (CKD-EPI)AfAm >90 (>60 ml/min/1.73 sqM) Est GFR (CKD-EPI)NonAf >90 (>60 ml/min/1.73 sqM) Glucose 112 H (74-99) mg/dL Calcium 9.6 (8.4-10.2) mg/dL Total Bilirubin 0.8 (0.2-1.3) mg/dL AST 21 (14-36) U/L ALT 15 (4-34) U/L Alkaline Phosphatase 90 (38-126) U/L Total Protein 7.8 (6.3-8.2) g/dL Albumin 4.5 (3.5-5.0) g/dL Disposition Clinical Impression: Contusion of scalp, Hematoma of scalp, Concussion without loss of consciousness Disposition: HOME SELF-CARE Condition: Good Instructions (If sedation given, give patient instructions): Concussion (ED) Is patient prescribed a controlled substance at d/c from ED?: No Referrals: Farrukh Verma DO [Primary Care Provider] - 1-2 days Time of Disposition: 16:33
[2024-03-26] MEDS: ONDANSETRON 4 MG/2 ML VIAL IVP STA ×2 (13:10→15:27)
[2024-03-26] MEDS: KETOROLAC 15 MG/ML 1 ML VIAL IVP STA ×2 (13:10→15:27)
[2024-03-26 13:19] LABS: Basophils # (A) 0.1 k/uL (0-0.2); Basophils % (A) 1 %; Eosinophils # (A) 0.8 k/uL (0-0.7); Eosinophils % (A) 7 %; HCT 45.7 % (34.0-46.0); HGB 15.4 gm/dL (11.4-16.0); Lymphocytes # (A) 2.9 k/uL (1.0-4.8); Lymphocytes % (A) 26 %; MCH 29.5 pg (25.0-35.0); MCHC 33.8 g/dL (31.0-37.0); MCV 87.3 fL (80.0-100.0); Mean Platelet Volume 7.3; Monocytes # (A) 0.5 k/uL (0-1.0); Monocytes % (A) 4 %; Neutrophils # (A) 6.7 k/uL (1.3-7.7); Neutrophils % (A) 61 %; Platelet Count 322 k/uL (150-450); RBC 5.24 m/uL (3.80-5.40); RDW 13.3 % (11.5-15.5); WBC 11.1 k/uL (3.8-10.6)
[2024-03-26 13:29] LABS: Partial Thromboplastin Time 23.7 sec (22.0-30.0); Prothrombin Time 10.6 sec (10.0-12.5)
[2024-03-26 13:39] LABS: ALT 15 U/L (4-34); AST 21 U/L (14-36); African American GFR (CKD) >90 (>60 ml/min/1.73 sqM); Albumin 4.5 g/dL (3.5-5.0); Alkaline Phosphatase 90 U/L (38-126); Anion Gap 9 mmol/L; Blood Urea Nitrogen 12 mg/dL (7-17); Calcium 9.6 mg/dL (8.4-10.2); Carbon Dioxide 22 mmol/L (22-30); Chloride 107 mmol/L (98-107); Glucose 112 mg/dL (74-99); Non-African American GFR(CKD) >90 (>60 ml/min/1.73 sqM); Sodium 138 mmol/L (137-145); Total Bilirubin 0.8 mg/dL (0.2-1.3); Total Protein 7.8 g/dL (6.3-8.2)
--- NOTE | 2024-03-26 13:57 | XR ---
EXAMINATION TYPE: XR thoraco lumbar junction DATE OF EXAM: 03/26/2024 1:32 PM COMPARISON: None. CLINICAL INDICATION: Female, 53 years old with history of TTP near L1, TECHNIQUE: Thoracolumbar spine is performed in 2 projections view(s) obtained. FINDINGS: There is straightening of the thoracolumbar junction. Vertebral body heights are preserved. Disc heig hts are preserved. Pedicles are intact and the [id number] IMPRESSION: 1. . No acute osseous abnormality thoracolumbar junction [facility], , 03/26/2024 1:55 PM
--- NOTE | 2024-03-26 16:13 | CT ---
EXAMINATION TYPE: CT brain mine wo con DATE OF EXAM: 03/26/2024 3:41 PM COMPARISON: None. CLINICAL INDICATION: Female, 53 years old with history of pain, TECHNIQUE: CT of the brain is performed utilizing 3 mm thick sections through the posterior fossa and 3 mm thick sections through the remaining calvarium. Study is performed within 24 hours of arrival to the hospital. Contrast used: mL of , (none if empty) CT DLP: 1676.7 mGycm, Automated exposure control for dose reduction was used. FINDINGS: No abnormal hyperdensity is present to suggest an acute intracranial hemorrhage. No mass lesion is evident. No acute infarcts are evident. Ventricles and sulci are appropriate for the patient age. Soft tissue swelling is over the frontal region. No underlying fracture is present. Paranasal sinuses and mastoid air cells within the [id number] are clear. IMPRESSIONS: 1. No acute intracranial process. Follow-up MRI can be performed as clinically indicated. 2. Superficial soft tissue swelling frontal region CT cervical spine. COMPARISON: None TECHNIQUE: CT of the cervical spine is performed in the axial plane at 2 mm thick sections. Reconstr ucted images in the coronal, and sagittal plane are reviewed on the computer. FINDINGS: No acute fractures are evident. There is some mild diffuse kyphosis present through the cervical spine. Prevertebral space is normal. Posterior spinal lamellar line is intact. Disc heights are preserved. Vertebral body heights are preserved. No spinal canal stenosis is evident. No neural foraminal stenosis is evident. IMPRESSION: 1. Mild kyphosis cervical spine [facility], , 03/26/2024 4:10 PM
[2024-03-26] MEDS: ONDANSETRON 4 MG ODT STARTER PACK 2 TAB BTL PO STA (16:46)
[2024-03-26] MEDS: ACET/COD 300 MG/30 MG STARTER PACK 6 TAB BTL PO STA (16:46)
[2024-03-26 16:51] VITALS: PULSE 84; RESP 16
== END 2024-03-26 16:52 | disposition home or self-care (01) ==
LOC: EC 11:58
DX: S06.0X0A Concussion without loss of consciousness, initial encounter (principal); S00.03XA Contusion of scalp, initial encounter; E11.36 Type 2 diabetes mellitus with diabetic cataract; Z79.84 Long term (current) use of oral hypoglycemic drugs; Z87.891 Personal history of nicotine dependence; W01.0XXA Fall on same level from slipping, tripping and stumbling without subsequent striking against object, initial encounter
CPT/HCPCS: 36415; 80053; 85025; 85610; 85730; 72080; 72125; 70450; 99284; 96374; 96375; 96376 ×2; J2405; J1885; S0119